=== PATIENT | male | born 1965 | race Caucasian/White ===

== ENCOUNTER 2016-10-29 21:53 | Emergency (ER) | payer MEDICAID ==
[~2016-10-29] VITALS: Ht 172.7 cm; Wt 65.0 kg
[~2016-10-29 21:53] MED LIST: IBUP600 PO; ORPH100T PO
[2016-10-29 21:55] VITALS: BP 149/84; PULSE 56; RESP 16; TEMP 97.8; O2SAT 99
== END 2016-10-29 22:35 | disposition left against medical advice (07) ==
LOC: NEDAMB 21:53
DX: R10.30 Lower abdominal pain, unspecified (principal); Z53.21 Procedure and treatment not carried out due to patient leaving prior to being seen by health care provider
CPT/HCPCS: 99281

== ENCOUNTER 2016-12-08 19:31 | Inpatient (IN) | payer MEDICAID, OTHER ==
[~2016-12-08] VITALS: Ht 175.3 cm; Wt 70.5 kg
[2016-12-08 19:33] VITALS: BP 158/85; PULSE 63; RESP 16; TEMP 98.9; O2SAT 99
[2016-12-08 20:55] LABS: AUTOMATED NEUTROPHIL # 5.5 TH/MM3 (1.8-7.7); BASOPHIL # 0.1 TH/MM3 (0-0.2); BASOPHIL % 1.2 % (0.0-2.0); EOSINOPHIL # 0.3 TH/MM3 (0-0.4); EOSINOPHIL % 2.9 % (0.0-4.0); HEMATOCRIT 47.5 % (39.0-51.0); HEMO FLAGS DIFF FINAL; LYMPH % 30.3 % (9.0-44.0); MEAN CORPUSCULAR HEMOGLOBIN 28.2 PG (27.0-34.0); MEAN CORPUSCULAR HGB CONC 33.2 % (32.0-36.0); MONO % 9.9 % (0.0-8.0); NEUT % 55.7 % (16.0-70.0); PLATELET COUNT 225 TH/MM3 (150-450); RED BLOOD COUNT 5.58 MIL/MM3 (4.50-5.90)
[2016-12-08 21:13] LABS: ANION GAP 7 MEQ/L (5-15); AST (GOT) 15 U/L (15-37); BLOOD UREA NITROGEN 5 MG/DL (7-18); CHLORIDE 103 MEQ/L (98-107); GLOMERULAR FILTRATION RATE 85 ML/MIN (>89); POTASSIUM 3.5 MEQ/L (3.5-5.1); SODIUM (NA) 141 MEQ/L (136-145)
[2016-12-08 21:14] LABS: ALT (GPT) 19 U/L (12-78)
[2016-12-08 21:16] LABS: ALKALINE PHOSPHATASE 79 U/L (45-117); TOTAL BILIRUBIN ADULT 0.8 MG/DL (0.2-1.0)
[2016-12-08 22:00] LABS: BLOOD, URINE NEG (NEG); COMMENT (UR) CULT NOT INDICATED; CULTURE IF INDICATED CULT NOT INDICATED; GLUCOSE,URINE NEG (NEG); KETONE, URINE NEG (NEG); MUCUS URINE FEW /lpf (OCC); NITRITE,URINE NEG (NEG); PH, URINE 5.5 (5.0-8.5); URINE COLOR LIGHT-YELLOW (YELLW/STRAW)
--- NOTE | 2016-12-08 22:25 | PD ---
HPI Chief Complaint: General Weakness Time Seen by Provider: 22:00 Travel History International Travel<30 days: No Contact w/Intl Traveler<30days: No Traveled to known affect area: No History of Present Illness HPI 51-year-old male presents to emergency Department with progressively worsening lower extremity weakness bilaterally with frequent falls, history of both urine and follow incontinence and recent weeks. 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 Patient states she's been trying to get him with neurology since then, but due to insurance issues he has not been able to get an appointment in the past year. Patient does also complain of bilateral upper extremity numbness this. He denies fever, chills, or other symptoms. Patient states symptoms are progressively worsening, especially in the last several weeks. Patient also states occasional headaches which last for seconds. He states no abdominal pain, nausea, vomiting, or diarrhea. He has no shortness of breath, cough, or wheezing. Patient is allergic to doxycycline. PFSH Past Medical History Blood Disorders: No Anxiety: Yes Cancer: No Cardiovascular Problems: No Chest Pain: Yes Diminished Hearing: No Endocrine: No Gastrointestinal Disorders: No GERD: Yes Genitourinary: No Immune Disorder: No Musculoskeletal: No Neurologic: No Respiratory: No Tetanus Vaccination: < 5 Years Influenza Vaccination: No Past Surgical History AICD: No Joint Replacement: Yes (left rotator cuff/ clavicle repair years ago ) Pacemaker: No Other Surgery: Yes (LEFT TOE , ) Social History Alcohol Use: No Tobacco Use: Yes (2 PPD) Substance Use: No Allergies-Medications (Allergen,Severity, Reaction): Coded Allergies: Doxycycline (Verified Adverse Reaction, Intermediate, Nausea/Vomiting, ) Reported Meds & Prescriptions Reported Meds & Active Scripts Active No Active Prescriptions or Reported Medications Review of Systems Except as stated in HPI: all other systems reviewed are Neg General / Constitutional: No: Fever Eyes: No: Visual changes HENT: No: Headaches Cardiovascular: No: Chest Pain or Discomfort Respiratory: No: Shortness of Breath Gastrointestinal: No: Abdominal Pain Genitourinary: No: Dysuria Musculoskeletal: Positive: Weakness (see history present illness.), No: Pain Skin: No Rash Neurologic: Positive: Coordination Problem, Ataxia, Incontinence, No: Weakness Psychiatric: No: Depression Endocrine: No: Polydipsia Hematologic/Lymphatic: No: Easy Bruising Physical Exam Narrative GENERAL: Patient appears in no acute distress. SKIN: Warm and dry. Normal color. Normal turgor. No rash. HEAD: Atraumatic. Normocephalic. EYES: Pupils equal and round. No scleral icterus. No injection or drainage. ENT: No nasal bleeding or discharge. Mucous membranes pink and moist. Pharynx is clear. Uvula is midline. Airway is patent. NECK: Trachea midline. Supple and nontender. CARDIOVASCULAR: Regular rate and rhythm. RESPIRATORY: No accessory muscle use. Clear to auscultation. Breath sounds equal bilaterally. GASTROINTESTINAL: Abdomen soft, non-tender, nondistended. Hepatic and splenic margins not palpable. MUSCULOSKELETAL: Extremities without clubbing, cyanosis, or edema. No obvious deformities. NEUROLOGICAL: Awake and alert. No obvious cranial nerve deficits. Motor grossly within normal limits. Patient has 3-4 over 5 strength in the lower extremities bilaterally. Patient is hyperreflexive in the patellar and Achilles tendons. Patient has positive cogwheeling in both lower extremities. Upper extremities have normal range of motion and strength. Normal speech. PSYCHIATRIC: Appropriate mood and affect; insight and judgment normal. Data Data Last Documented VS Vital Signs Date Time Temp Pulse Resp B/P Pulse Ox O2 Delivery O2 Flow Rate FiO2 12/08/16 22:15 16 12/08/16 19:33 98.9 63 158/85 99 Room Air Orders Complete Blood Count With Diff (12/08/16 19:54) Comprehensive Metabolic Panel (12/08/16 19:54) Urinalysis - C+S If Indicated (12/08/16 19:54) Mri C Spine W&W/O Contrast (12/08/16 ) Mri T Spine W & W/O Contrast (12/08/16 ) Mri L Spine W&W/O Contrast (12/08/16 ) Westergren Sedimentation Rate (12/08/16 22:17) Labs Laboratory Tests Test 12/08/16 12/08/16 20:16 21:35 White Blood Count 10.0 TH/MM3 Red Blood Count 5.58 MIL/MM3 Hemoglobin 15.8 GM/DL Hematocrit 47.5 % Mean Corpuscular Volume 85.0 FL Mean Corpuscular Hemoglobin 28.2 PG Mean Corpuscular Hemoglobin 33.2 % Concent Red Cell Distribution Width 15.0 % Platelet Count 225 TH/MM3 Mean Platelet Volume 9.0 FL Neutrophils (%) (Auto) 55.7 % Lymphocytes (%) (Auto) 30.3 % Monocytes (%) (Auto) 9.9 % Eosinophils (%) (Auto) 2.9 % Basophils (%) (Auto) 1.2 % Neutrophils # (Auto) 5.5 TH/MM3 Lymphocytes # (Auto) 3.0 TH/MM3 Monocytes # (Auto) 1.0 TH/MM3 Eosinophils # (Auto) 0.3 TH/MM3 Basophils # (Auto) 0.1 TH/MM3 CBC Comment DIFF FINAL Differential Comment Sodium Level 141 MEQ/L Potassium Level 3.5 MEQ/L Chloride Level 103 MEQ/L Carbon Dioxide Level 31.0 MEQ/L Anion Gap 7 MEQ/L Blood Urea Nitrogen 5 MG/DL Creatinine 0.94 MG/DL Estimat Glomerular Filtration 85 ML/MIN Rate Random Glucose 81 MG/DL Calcium Level 9.5 MG/DL Total Bilirubin 0.8 MG/DL Aspartate Amino Transf 15 U/L (AST/SGOT) Alanine Aminotransferase 19 U/L (ALT/SGPT) Alkaline Phosphatase 79 U/L Total Protein 7.9 GM/DL Albumin 3.8 GM/DL Urine Color LIGHT-YELLOW Urine Turbidity CLEAR Urine pH 5.5 Urine Specific [place] 1.004 Urine Protein NEG mg/dL Urine Glucose (UA) NEG mg/dL Urine Ketones NEG mg/dL Urine Occult Blood NEG Urine Nitrite NEG Urine Bilirubin NEG Urine Urobilinogen LESS THAN 2.0 MG/DL Urine Leukocyte Esterase NEG Urine RBC LESS THAN 1 /hpf Urine WBC 1 /hpf Urine Mucus FEW /lpf Microscopic Urinalysis Comment CULT NOT INDICATED MDM Medical Decision Making Medical Screen Exam Complete: Yes Emergency Medical Condition: Yes Medical Record Reviewed: Yes Differential Diagnosis Lower extremity weakness. Hyperreflexia. Reports of demyelinization on MRI. Possible Multiple sclerosis. Narrative Course CBC CMP and urinalysis are normal. Patient is discussed with Dr. Tao. MRI of the brain and cervical spine is ordered. Care the patient is assumed at 2300 hrs., and final plan and disposition will be by Dr. Tao. Scripts No Active Prescriptions or Reported Meds Condition: Stable Iban Orr Dec 08, 2016 22:25
--- NOTE | 2016-12-08 22:34 | PD ---
Data Data Last Documented VS Vital Signs Date Time Temp Pulse Resp B/P Pulse Ox O2 Delivery O2 Flow Rate FiO2 12/08/16 22:15 16 12/08/16 19:33 98.9 63 158/85 99 Room Air Orders Complete Blood Count With Diff (12/08/16 19:54) Comprehensive Metabolic Panel (12/08/16 19:54) Urinalysis - C+S If Indicated (12/08/16 19:54) Mri C Spine W&W/O Contrast (12/08/16 ) Mri T Spine W & W/O Contrast (12/08/16 ) Mri L Spine W&W/O Contrast (12/08/16 ) Westergren Sedimentation Rate (12/08/16 22:17) Methylprednisolone So Succ Inj (Solumedr (12/08/16 23:00) Bladder Scan PRN (12/08/16 22:54) Gadodiamide Pf Inj (Omniscan Pf Inj) (12/09/16 00:32) Admit Order (Ed Use Only) (12/09/16 01:11) Labs Laboratory Tests Test 12/08/16 12/08/16 20:16 21:35 White Blood Count 10.0 TH/MM3 Red Blood Count 5.58 MIL/MM3 Hemoglobin 15.8 GM/DL Hematocrit 47.5 % Mean Corpuscular Volume 85.0 FL Mean Corpuscular Hemoglobin 28.2 PG Mean Corpuscular Hemoglobin 33.2 % Concent Red Cell Distribution Width 15.0 % Platelet Count 225 TH/MM3 Mean Platelet Volume 9.0 FL Neutrophils (%) (Auto) 55.7 % Lymphocytes (%) (Auto) 30.3 % Monocytes (%) (Auto) 9.9 % Eosinophils (%) (Auto) 2.9 % Basophils (%) (Auto) 1.2 % Neutrophils # (Auto) 5.5 TH/MM3 Lymphocytes # (Auto) 3.0 TH/MM3 Monocytes # (Auto) 1.0 TH/MM3 Eosinophils # (Auto) 0.3 TH/MM3 Basophils # (Auto) 0.1 TH/MM3 CBC Comment DIFF FINAL Differential Comment Erythrocyte Sedimentation Rate 4 mm/hr Sodium Level 141 MEQ/L Potassium Level 3.5 MEQ/L Chloride Level 103 MEQ/L Carbon Dioxide Level 31.0 MEQ/L Anion Gap 7 MEQ/L Blood Urea Nitrogen 5 MG/DL Creatinine 0.94 MG/DL Estimat Glomerular Filtration 85 ML/MIN Rate Random Glucose 81 MG/DL Calcium Level 9.5 MG/DL Total Bilirubin 0.8 MG/DL Aspartate Amino Transf 15 U/L (AST/SGOT) Alanine Aminotransferase 19 U/L (ALT/SGPT) Alkaline Phosphatase 79 U/L Total Protein 7.9 GM/DL Albumin 3.8 GM/DL Urine Color LIGHT-YELLOW Urine Turbidity CLEAR Urine pH 5.5 Urine Specific [place] 1.004 Urine Protein NEG mg/dL Urine Glucose (UA) NEG mg/dL Urine Ketones NEG mg/dL Urine Occult Blood NEG Urine Nitrite NEG Urine Bilirubin NEG Urine Urobilinogen LESS THAN 2.0 MG/DL Urine Leukocyte Esterase NEG Urine RBC LESS THAN 1 /hpf Urine WBC 1 /hpf Urine Mucus FEW /lpf Microscopic Urinalysis Comment CULT NOT INDICATED MDM Medical Record Reviewed: Yes Supervised Visit with JEREMIAH: Yes Narrative Course I, Dr. Tao, have reviewed the advance practice practitioner's documentation and am in agreement, met with the patient face to face, made the diagnosis, and the medical decision making was done by me. The patient was initially seen by Iban, the physician retail loan originator assistant. Please see his complete history and physical. *My assessment and Findings: The patient is a 51-year-old male who presents to [facility] emergency Department with a history of progressive weakness and incontinence of urine with difficulty ambulating. The patient reports that he did have an MRI done last year that revealed evidence of multiple sclerosis. He has been attempting to follow-up with a neurologist, however is difficulty establishing an appointment with a neurologist due to problems finding one through his insurance. The patient's examination was remarkable for reported tingling sensations in the upper extremities, weakness of bilateral lower extremities. Laboratory studies and imaging studies were ordered, imaging of the back with MRI was ordered to evaluate for possible exacerbation of multiple sclerosis, versus cord contusion, versus cord compression During the course of the patients emergency department visit, the patients history, examination, and differential diagnosis were reviewed with the patient. The patient had IV access obtained and blood work sent for analysis. The patient was initially provided Solu-Medrol 125 mg IV for suspected MS exacerbation. The patients laboratory studies were reviewed and remarkable for CBC is unremarkable, sedimentation rate is 4, CMP is remarkable for a BUN of 5, GFR of 85, urinalysis unremarkable Radiology studies were reviewed and remarkable for an MRI of the C-spine which showed an abnormal area of signal with enhancement in the cervical cord posterior to C3 vertebral body could be an area of chronic multiple sclerosis, lumbar MRI shows no compression fracture or abnormal area of enhancement, T-spine was unremarkable. Therefore cord compression as an emergent surgical cause of the patient's lower extremity weakness has been ruled out. The patients results were discussed with the patient, including the plan of care. I explained that further testing and/ or monitoring is indicated based on the patients history, examination, and/ or laboratory findings. Therefore, I recommended admission for additional evaluation. The patient expressed understanding and was agreeable with this plan. The patient was admitted to the hospital in stable condition and [facility] Physician Communication Physician Communication The patient's case was discussed with Dr. Billings we did agree to admit the patient for further evaluation and treatment at this time. Diagnosis Primary Impression: Multiple sclerosis exacerbation Admitting Information Admitting Physician Requests: Admit Scripts Walker with Front Wheels 1 Mis Mis #1 EA .ROUTE DIRECTED Ref 0 Prov:Danica Hernandez PA-C 12/09/16 Condition: Stable Shayy Tao MD Dec 08, 2016 22:34
[2016-12-08] MEDS ORDERED: methylPREDNISolone SOD SUCC 125 MG/2 ML VIAL IV PUSH ONE (23:00)
[2016-12-09] VITALS (7 sets, daily range): BP systolic 112–145; BP diastolic 64–79; PULSE 54–96; RESP 16–20; TEMP 97.2–98.4; O2SAT 94–98
[2016-12-09] MEDS ORDERED: GADODIAMIDE PF 287 MG/ML 20 ML VIAL (for RAD MRI) IV ONE (00:32)
--- NOTE | 2016-12-09 00:47 | RADRPT ---
EXAM DATE/TIME: 12/08/2016 23:39 [facility] COMPARISON: MRI LUMBAR SPINE W & W/O CONTRAST, December 08, 2016, 23:39. INDICATIONS : Ataxia. CONTRAST: 14 cc Omniscan (gadodiamide) IV MEDICAL HISTORY : Multiple sclerosis. SURGICAL HISTORY : None. ENCOUNTER: Initial ACUITY: > 1 year PAIN SCORE: 0/10 LOCATION: [facility] TECHNIQUE: Multiplanar multisequence MRI of the thoracic spine was performed. FINDINGS: VERTEBRA: Normal vertebral body height. Homogeneous marrow signal. ALIGNMENT: Normal. CORD: Normal position and configuration. POST CONTRAST: No abnormal areas of contrast enhancement seen. T1-T2: Normal. T2-T3: The thecal sac has a normal diameter. No evidence of disc bulge or protrusion. T3-T4: The thecal sac has a normal diameter. No evidence of disc bulge or protrusion. T4-T5: The thecal sac has a normal diameter. No evidence of disc bulge or protrusion. T5-T6: The thecal sac has a normal diameter. No evidence of disc bulge or protrusion. T6-T7: The thecal sac has a normal diameter. No evidence of disc bulge or protrusion. T7-T8: The thecal sac has a normal diameter. No evidence of disc bulge or protrusion. T8-T9: The thecal sac has a normal diameter. No evidence of disc bulge or protrusion. T9-T10: The thecal sac has a normal diameter. No evidence of disc bulge or protrusion. T10-T11: The thecal sac has a normal diameter. No evidence of disc bulge or protrusion. T11-T12: The thecal sac has a normal diameter. No evidence of disc bulge or protrusion. T12-L1: The thecal sac has a normal diameter. No evidence of disc bulge or protrusion. CONCLUSION: Normal examination. Berny Jefferson MD on December 09, 2016 at 0:46 Board Certified Radiologist. This report was verified electronically.
--- NOTE | 2016-12-09 01:09 | RADRPT ---
EXAM DATE/TIME: 12/08/2016 23:39 [facility] COMPARISON: No previous studies available for comparison. INDICATIONS : Ataxia. CONTRAST: 14 cc Omniscan (gadodiamide) IV MEDICAL HISTORY : Multiple sclerosis. SURGICAL HISTORY : None. ENCOUNTER: Initial ACUITY: > 1 year PAIN SCORE: 0/10 LOCATION: Paraspinal TECHNIQUE: Multiplanar, multisequence MRI examination of the cervical spine was performed. FINDINGS: VERTEBRAE: Normal vertebral body height. Homogeneous marrow signal. ALIGNMENT: No evidence of subluxation. CORD: There some areas of narrowing of the cord from the C 2/3 disc space down to the C3-4 disc space. POST FOSSA: The cerebellar tonsils are normal in position. POST-CONTRAST: No abnormal areas of enhancement are seen. C2-C3: The thecal sac has a normal configuration. There is no evidence of disc herniation or spinal canal stenosis. The neural foramina are patent bilaterally. C3-C4: The thecal sac has a normal configuration. There is no evidence of disc herniation or spinal canal s tenosis. The neural foramina are patent bilaterally. C4-C5: The thecal sac has a normal configuration. There is no evidence of disc herniation or spinal canal s tenosis. The neural foramina are patent bilaterally. C5-C6: The thecal sac has a normal configuration. There is no evidence of disc herniation or spinal canal s tenosis. The neural foramina are patent bilaterally. C6-C7: The thecal sac has a normal configuration. There is no evidence of disc herniation or spinal canal s tenosis. The neural foramina are patent bilaterally. C7-T1: The thecal sac has a normal configuration. There is no evidence of disc herniation or spinal canal s tenosis. The neural foramina are patent bilaterally. CONCLUSION: Abnormal area of signal without enhancement in the cervical cord posterior to the C3 vertebral body. Could be an area of chronic multiple sclerosis. No acute edema or enhancement identified Berny Jefferson MD on December 09, 2016 at 1:05 Board Certified Radiologist. This report was verified electronically.
--- NOTE | 2016-12-09 01:13 | RADRPT ---
EXAM DATE/TIME: 12/08/2016 23:39 [facility] COMPARISON: No previous studies available for comparison. INDICATIONS : Ataxia. CONTRAST: 14 cc Omniscan (gadodiamide) IV MEDICAL HISTORY : Multiple sclerosis. SURGICAL HISTORY : None. ENCOUNTER: Initial ACUITY: > 1 year PAIN SCORE: 0/10 LOCATION: Paraspinal TECHNIQUE: Multiplanar multisequence MRI of the lumbar spine was performed with and without contrast. FINDINGS: The most caudal appearing lumbar vertebra is numbered as L5. VERTEBRAE: Homogeneous signal. Normal alignment. CONUS: Normal level and configuration. POST CONTRAST: No abnormal areas of contrast enhancement are seen. T12-L1: The thecal sac has a normal diameter. No evidence of disc bulge or protrusion. The neural foramina are patent bilaterally. L1-L2: The thecal sac has a normal diameter. No evidence of disc bulge or protrusion. The neural foramina are patent bilaterally. L2-L3: The thecal sac has a normal diameter. No evidence of disc bulge or protrusion. The neural foramina are patent bilaterally. L3-L4: The thecal sac has a normal diameter. No evidence of disc bulge or protrusion. The neural foramina are patent bilaterally. L4-L5: The thecal sac has a normal diameter. Mild diffuse annular bulge . No evidence of disc protrusion. The neural foramina are patent bilaterally. L5-S1: The thecal sac has a normal diameter. Mild diffuse annular bulge . No evidence of disc protrusion. The neural foramina are patent bilaterally. CONCLUSION: Mild diffuse annular bulges at L4-5 and L5-S1. No compression fracture or abnormal area of enhancemen t is identified Berny Jefferson MD on December 09, 2016 at 1:10 Board Certified Radiologist. This report was verified electronically.
[2016-12-09] MEDS ORDERED: ACETAMINOPHEN 325 MG TAB PO PRN (01:45)
[2016-12-09] MEDS ORDERED: NALOXONE HCL 0.4 MG/ML AMP IV PRN (01:45)
[2016-12-09] MEDS ORDERED: ONDANSETRON HCL 4 MG/2 ML VIAL IVP PRN (01:45)
[2016-12-09] MEDS ORDERED: MAGNESIUM HYDROXIDE SUSP 30 ML CUP PO PRN (01:45)
[2016-12-09] MEDS ORDERED: HEPARIN SODIUM - SQ 10,000 UNITS/ML VIAL SQ SCH (06:00)
--- NOTE | 2016-12-09 08:21 | HHI.HP ---
[facility] Lavon Richardson MD Admission Diagnosis lower extremity weakness, urinary incontinence, suspected MS exacerb Diagnoses: Chief Complaint: weakness, falls, incontinence Travel History International Travel<30 Days: No Contact w/Intl Traveler <30 Da: No Traveled to Known Affected Are: No History of Present Illness Written by Danica Hernandez, acting as scribe for Dr. Gamez on 12/09/16 at 07:55. 51-year-old male with history of GERD, anxiety, presents with a 1 year history of multiple worsening neurological deficits including lower extremity weakness, falls, bladder/bowel incontinence, upper extremity numbness. Over the past multiple months, approximately since March 2016, he's been getting significantly worse with increasing weakness, frequent falls, and now urine and fecal incontinence. He states there's no saddle anesthesia and he has the sensation that he has to use the restroom however does not have control of his function and is usually unable to make it to the bathroom in time. He's also noticed lately he's becoming more confused, forgetful, and disoriented at times. He also reports tremors of his upper and lower extremities that has made it difficult to perform his daily activities such as shaving and showering. He states sometimes his symptoms are so bad that he cannot even walk. He states he has fallen on steps, fallen off a ladder, and even tripped in the grass. Lately when he tries to get into a vehicle he has to pick his legs up with his arms to swing them into the vehicle. He also reports tinnitus, intermittent hearing loss , and dizziness. Denies any visual changes. The patient also reports bilateral upper extremity numbness. He has a sister in [place] who was diagnosed with multiple sclerosis 1 year ago. The patient started to become very concerned about his symptoms in March 2016 therefore he paid [id number] to see a PCP who ordered initial work up. He has a brain MRI report done on 04/25/16 which showed "cerebral white matter disease with scattered T2 hyperintensities which include corpus callosal involvement and is characteristic of a demyelinating process". Lumbar spine MRI also done 04/25/16 showed mild DDD at L4-5 and L5-S1; mild right-sided foraminal stenosis at L4-5; no evidence of disc herniation, central spinal stenosis, or significant nerve root compression. He also has outpatient labs done which were only remarkable for Potassium 5.5. He tried to see an outpatient neurologist however was turned down due to insurance reasons. Review of Systems Except as stated in HPI: all other systems reviewed are Neg Past Family Social History Past Medical History GERD Anxiety Depression Past Surgical History Left Clavicle surgery Toe surgery Reported Medications No Active Prescriptions or Reported Medications Allergies: Coded Allergies: Doxycycline (Verified Adverse Reaction, Intermediate, Nausea/Vomiting, ) Active Ordered Medications Current Medications Medications (Trade) Dose Ordered Sig/Barbra Route Start Time Stop Time Status Last Admin (Tylenol) 650 mg Q4H PRN PO 12/09/16 01:45 (Zofran Inj) 4 mg Q6H PRN IVP 12/09/16 01:45 (Heparin Inj) 5,000 units Q8H SQ 12/09/16 06:00 12/09/16 05:48 (Narcan Inj) 0.4 mg UNSCH PRN IV 12/09/16 01:45 (Amber-Colace) 1 tab BID PO 12/09/16 09:00 (Milk Of Magnesia Liq) 30 ml Q12H PRN PO 12/09/16 01:45 Family History Sister with multiple sclerosis diagnosed 1 year ago Maternal family with cancer Paternal family with heart disease and diabetes Social History Smokes tobacco 1 to 1.5 PPD, trying to cut back. Denies any alcohol or illicit drug use Physical Exam Vital Signs Vital Signs Date Time Temp Pulse Resp B/P Pulse Ox O2 Delivery O2 Flow Rate FiO2 12/09/16 04:32 98.4 60 18 112/65 97 12/08/16 22:15 16 12/08/16 19:33 98.9 63 16 158/85 99 Room Air Physical Exam GENERAL: Well-nourished, well-developed middle aged male patient in NAD. SKIN: Warm and dry. No rash. HEAD: Normocephalic. Atraumatic. EYES: Pupils equal and round. No scleral icterus. No injection or drainage. ENT: No nasal bleeding or discharge. Mucous membranes pink and moist. NECK: Supple. Trachea midline. CARDIOVASCULAR: Regular rate and rhythm. S1, S2 noted. No murmur appreciated. RESPIRATORY: No accessory muscle use. Clear to auscultation. Breath sounds equal bilaterally. GASTROINTESTINAL: Abdomen soft, non-tender, nondistended. Normoactive bowel sounds x4. MUSCULOSKELETAL: No obvious deformities. Extremities without clubbing, cyanosis , or edema. NEUROLOGICAL: Awake and alert. No obvious cranial nerve deficits. Motor grossly within normal limits. 5/5 strength in b/l upper extremities; 4/5 muscle strength in bilateral lower extremities. Normal speech. PSYCHIATRIC: Appropriate mood and affect; insight and judgment normal. Laboratory Laboratory Tests Test 12/08/16 12/08/16 20:16 21:35 White Blood Count 10.0 Red Blood Count 5.58 Hemoglobin 15.8 Hematocrit 47.5 Mean Corpuscular Volume 85.0 Mean Corpuscular Hemoglobin 28.2 Mean Corpuscular Hemoglobin 33.2 Concent Red Cell Distribution Width 15.0 Platelet Count 225 Mean Platelet Volume 9.0 Neutrophils (%) (Auto) 55.7 Lymphocytes (%) (Auto) 30.3 Monocytes (%) (Auto) 9.9 Eosinophils (%) (Auto) 2.9 Basophils (%) (Auto) 1.2 Neutrophils # (Auto) 5.5 Lymphocytes # (Auto) 3.0 Monocytes # (Auto) 1.0 Eosinophils # (Auto) 0.3 Basophils # (Auto) 0.1 CBC Comment DIFF FINAL Differential Comment Erythrocyte Sedimentation Rate 4 Sodium Level 141 Potassium Level 3.5 Chloride Level 103 Carbon Dioxide Level 31.0 Anion Gap 7 Blood Urea Nitrogen 5 Creatinine 0.94 Estimat Glomerular Filtration 85 Rate Random Glucose 81 Calcium Level 9.5 Total Bilirubin 0.8 Aspartate Amino Transf 15 (AST/SGOT) Alanine Aminotransferase 19 (ALT/SGPT) Alkaline Phosphatase 79 Total Protein 7.9 Albumin 3.8 Urine Color LIGHT-YELLOW Urine Turbidity CLEAR Urine pH 5.5 Urine Specific [place] 1.004 Urine Protein NEG Urine Glucose (UA) NEG Urine Ketones NEG Urine Occult Blood NEG Urine Nitrite NEG Urine Bilirubin NEG Urine Urobilinogen LESS THAN 2.0 Urine Leukocyte Esterase NEG Urine RBC LESS THAN 1 Urine WBC 1 Urine Mucus FEW Microscopic Urinalysis Comment CULT NOT INDICATED Result Diagram: 12/08/16201512/08/16 2016 Imaging Last Impressions Thoracic Spine MRI 12/08/16 0000 Signed Impressions: Service Date/Time: Thursday, December 08, 2016 23:39 - CONCLUSION: Normal examination. Berny Jefferson MD Lumbar Spine MRI 12/08/16 0000 Signed Impressions: Service Date/Time: Thursday, December 08, 2016 23:39 - CONCLUSION: Mild diffuse annular bulges at L4-5 and L5-S1. No compression fracture or abnormal area of enhancement is identified Berny Jefferson MD Cervical Spine MRI 12/08/16 0000 Signed Impressions: Service Date/Time: Thursday, December 08, 2016 23:39 - CONCLUSION: Abnormal area of signal without enhancement in the cervical cord posterior to the C3 vertebral body. Could be an area of chronic multiple sclerosis. No acute edema or enhancement identified Berny Jefferson MD Assessment and Plan Problem List: (1) Neurological deficit present ICD Code: R29.818 Status: Acute (2) Multiple sclerosis exacerbation ICD Code: G35 Status: Acute Assessment and Plan 51-year-old male with history of GERD, anxiety, presents with a 1 year history of multiple worsening neurological deficits including lower extremity weakness, falls, bladder/bowel incontinence, upper extremity numbness. Suspected Acute Multiple Sclerosis: presents with multiple worsening neurological deficits (falls/numbness/weakness/incontinence). Outpatient MRI showed "cerebral white matter disease with scattered T2 hyperintensities which include corpus callosal involvement and is characteristic of a demyelinating process". Unable to follow up with neurology due to insurance/ payment barriers. -C-spine MRI images reviewed, shows abnormal signal without enhancement in the cervical cord posterior to C3; could be area of chronic multiple sclerosis -T-spine MRI images reviewed, unremarkable -L-spine images reviewed, shows mild diffuse annular bulges at L4-5, L5-S1; no fracture or abnormal enhancement -Repeat Brain MRI w&w/out contrast -S/p IV Solumedrol 125mg x1 in the ED, will continue steroid therapy with IV Solumedrol 80mg q12h -Consult Neurology -Consider lumbar puncture, hold anticoagulation, will defer to neurology -PT evaluation -Neuro checks -1645hrs: Discussed with Dr. Harman, he will be ordering LP to be done by IR , recommends inpatient admission x3days, adding Protonix, and increasing IV Solumedrol to 500mg q12h x3days DVT Prophylaxis: teds/SCDs I spent 35 minutes [id number] with the patient or on the gonzalez discussing the patient's disposition, prognosis, and plan of care with his caregivers. Over half the time spent was devoted to counseling the patient regarding placement in coordinating care with caregivers and case management. This note was transcribed by scribe [Danica Hernandez]. I, Dr. Vini Gamez personally performed the history, physical exam, and medical decision making; and confirmed the accuracy of the information in the transcribed note. Authenticated by Dr. Vini Gamez on 12/09/16 at 14:03. Discussed Condition With Discussed with the patient and the patient's sister over the phone extensively. Discussed with case management, patient has Medicaid share of cost and should be able to follow up with neurologist after discharge. Discussed with ARIN. Danica Hernandez PA-C Dec 09, 2016 8:21 am Vini Gamez MD Dec 09, 2016 2:04 pm
[2016-12-09] MEDS ORDERED: methylPREDNISolone SOD SUCC 125 MG/2 ML VIAL IV PUSH SCH ×2 (09:00→21:00)
[2016-12-09] MEDS ORDERED: GADODIAMIDE PF 287 MG/ML 5 ML VIAL (for RAD MRI) IV ONE (10:31)
--- NOTE | 2016-12-09 10:56 | RADRPT ---
EXAM DATE/TIME: 12/09/2016 10:04 [facility] COMPARISON: MRI CERVICAL SPINE W & W/O CONTRAST, December 08, 2016, 23:39. INDICATIONS : Weakness, tremors and loss of coordination. Multiple sclerosis. CONTRAST: 13 cc Omniscan (gadodiamide) IV MEDICAL HISTORY : Multiple sclerosis. SURGICAL HISTORY : Left clavicle. ENCOUNTER: Subsequent ACUITY: 2 day PAIN SCORE: 0/10 LOCATION: head. TECHNIQUE: Multiplanar, multisequence MRI of the brain was performed both prior to and following the administrat ion of paramagnetic contrast. FINDINGS: CEREBRUM: The ventricles are normal for age. No evidence of midline shift, mass lesion, hemorrhage or acute in farction. No extraaxial fluid collections are seen. The pituitary gland and suprasellar cistern are normal in configuration. WHITE MATTER: There some scattered areas of increased T2 signal in the white matter. The overall number and locatio n is nonspecific. In the appropriate clinical setting, this could suggest a developing process such a s MS. POSTERIOR FOSSA: The cerebellum and brainstem are intact. The 4th ventricle is midline. The cerebellopontine angle is unremarkable. The cerebellar tonsils are normal in position. DIFFUSION IMAGING: No focal areas of restricted diffusion are seen. No evidence of acute infarction. EXTRACRANIAL: The visualized portions of the orbits and paranasal sinuses are unremarkable. POST-CONTRAST: No abnormal areas of parenchymal or dural enhancement. No evidence of blood-brain barrier breakdown. CONCLUSION: 1. Scattered areas of increased T2 signal in the white matter which would be consistent with patient' s stated diagnosis of MS. No enhancing plaques are seen. No abnormal signal is seen on the diffusion restricted imaging. Vini Fulton MD on December 09, 2016 at 10:51 Board Certified Radiologist. This report was verified electronically.
[2016-12-09] MEDS: DOCUSATE SODIUM 50 MG/SENNA 8.6 MG TAB PO SCH ×2 (11:56→21:00)
[2016-12-09] MEDS ORDERED: WALKER WHEELS/F1 MIS (14:47)
--- NOTE | 2016-12-09 16:09 | PD.CONS ---
History of Present Illness Service Neurology Consult Requested By [facility] Reason for Consult ms Primary Care Physician Lavon Richardson MD History of Present Illness 51-year-old male with history of GERD, anxiety, presents with a 1 year history of multiple worsening neurological deficits including lower extremity weakness, falls, bladder/bowel incontinence, upper extremity numbness. Over the past multiple months, he's been getting significantly worse with increasing weakness , frequent falls, and now urine and fecal incontinence. seen by neurologist who he states told him he has MS. never recieved medications 2/2 lack of insurance. has numbness in his arms, leg weakness, clumsiness. has had attacks of weakness lasting several days then improvement but has never been back to his baseline. has had blurry vision. +lhermittes sign. Review of Systems Except as stated in HPI: all other systems reviewed are Neg Past Family Social History Past Medical History GERD Anxiety Depression Past Surgical History Left Clavicle surgery Toe surgery Reported Medications No Active Prescriptions or Reported Medications Allergies: Coded Allergies: Doxycycline (Verified Adverse Reaction, Intermediate, Nausea/Vomiting, ) Family History Sister with multiple sclerosis diagnosed 1 year ago Social History Smokes tobacco 1 to 1.5 PPD Denies any alcohol or illicit drug use Review of Systems All other ROS: ROS reviewed as documented in chart Past Family Social History Allergies: Coded Allergies: Doxycycline (Verified Adverse Reaction, Intermediate, Nausea/Vomiting, ) Active Ordered Medications Current Medications Medications (Trade) Dose Ordered Sig/Barbra Route Start Time Stop Time Status Last Admin (Tylenol) 650 mg Q4H PRN PO 12/09/16 01:45 (Zofran Inj) 4 mg Q6H PRN IVP 12/09/16 01:45 (Heparin Inj) 5,000 units Q8H SQ 12/09/16 06:00 Hold 12/09/16 05:48 (Narcan Inj) 0.4 mg UNSCH PRN IV 12/09/16 01:45 (Amber-Colace) 1 tab BID PO 12/09/16 09:00 (Milk Of Magnesia Liq) 30 ml Q12H PRN PO 12/09/16 01:45 (SoluMEDROL INJ) 80 mg Q12HR IV PUSH 12/09/16 09:00 12/09/16 09:24 Exam I&O / VS Vital Signs Date Time Temp Pulse Resp B/P Pulse Ox O2 Delivery O2 Flow Rate FiO2 12/09/16 15:48 98.1 73 16 127/64 97 12/09/16 13:25 97.6 96 20 145/67 96 12/09/16 11:16 98.1 57 20 120/66 94 12/09/16 08:43 97.8 70 20 118/79 98 12/09/16 04:32 98.4 60 18 112/65 97 12/08/16 22:15 16 12/08/16 19:33 98.9 63 16 158/85 99 Room Air General: Alert and Oriented, No acute distress Eye: EOMI Respiratory: Non-labored respirations Neurologic: Alert, Oriented Psychiatric: Cooperative, Appropriate mood & affect Exam Comments alert, no aphasia, follows, mild dysconjugate gaze, +slow KATHERYN in both ue, + proximal hip flexor weakness, increased tone in artemio le, + artemio ankle clonus, reduced pin in arms/legs, gait not assessed Review/Management Diagnosis/Plan: (1) Multiple sclerosis exacerbation Plan: mri brain and cspine reviewed. + periventricular lesions; + black holes in the posterior trigone region. +cervical cord lesion 2-3 segments, patchy +UMN signs on exam i suspect he has MS. possibly PPMS vs SPMS recs iv solumedrol x 3 days p.t. csf studies i don't think he can work and will need long-term disability he will be seeing Dr. Joe in the [facility] clinic I gave him our research dept phone number for MS studies that he is interested in Alan Harman MD Dec 09, 2016 16:09
[2016-12-09] MEDS ORDERED: PANTOPRAZOLE SOD 40 MG DELAYED RELEASE TAB PO ONE (16:45)
[2016-12-09] MEDS ORDERED: TEMAZEPAM 15 MG CAP PO PRN (17:30)
[2016-12-09 20:10] LABS: APTT (PATIENT) 25.2 SEC (24.3-30.1); PROTHROMBIN TIME - PATIENT 10.7 SEC (9.8-11.6)
[2016-12-09] MEDS: methylPREDNISolone SO SUCC INJ 500 MG in SODIUM CHLORIDE 0.9% INJ 100 ML IV SCH (21:40)
[2016-12-10] VITALS (8 sets, daily range): BP systolic 102–134; BP diastolic 57–66; PULSE 48–59; RESP 17–20; TEMP 95.7–97.2; O2SAT 95–99
[2016-12-10] MEDS: DOCUSATE SODIUM 50 MG/SENNA 8.6 MG TAB PO SCH ×2 (07:58→21:14)
[2016-12-10] MEDS: PANTOPRAZOLE SOD 40 MG DELAYED RELEASE TAB PO SCH (07:58)
[2016-12-10] MEDS: methylPREDNISolone SO SUCC INJ 500 MG in SODIUM CHLORIDE 0.9% INJ 100 ML IV SCH ×2 (07:58→21:14)
[2016-12-10 08:27] LABS: AUTOMATED NEUTROPHIL # 15.9 TH/MM3 (1.8-7.7); BASOPHIL % 0.1 % (0.0-2.0); HEMATOCRIT 43.6 % (39.0-51.0); HEMO FLAGS DIFF FINAL; LYMPH % 7.4 % (9.0-44.0); LYMPHOCYTE # 1.3 TH/MM3 (1.0-4.8); MEAN CELL VOLUME 85.3 FL (80.0-100.0); MEAN CORPUSCULAR HEMOGLOBIN 28.4 PG (27.0-34.0); MEAN CORPUSCULAR HGB CONC 33.2 % (32.0-36.0); MONO % 2.8 % (0.0-8.0); NEUT % 89.7 % (16.0-70.0); PLATELET COUNT 222 TH/MM3 (150-450); RED BLOOD COUNT 5.11 MIL/MM3 (4.50-5.90); RED CELL DISTRIBUTION WIDTH 14.7 % (11.6-17.2); WHITE BLOOD COUNT 17.7 TH/MM3 (4.0-11.0)
[2016-12-10 08:56] LABS: BICARBONATE 28.7 MEQ/L (21.0-32.0); POTASSIUM 3.9 MEQ/L (3.5-5.1)
--- NOTE | 2016-12-10 10:39 | PD.RAD ---
Post Procedure Progress Note Pre Procedure Diagnosis: (1) Multiple sclerosis exacerbation Post Procedure Diagnosis: (1) Multiple sclerosis exacerbation Procedure Date: Dec 10, 2016 Supervising Radiologist: Danial Hawk JR Proceduralist/Assist: Danica Cox, RT(R), Heidi Hicks RT(R)() Anesthesia: Local Plan of Activity Patient to Unit: Nursing Unit Patient Condition: Good See PACS Report for procedural detail/treatment Spinal Procedure Lumbar Puncture L4-L5 Fluid Removal (CCs): 11 Fluid Description: Clear Puncture Time: 10:30 Jr. Kenn,Danial Roberto MD Dec 10, 2016 10:39
--- NOTE | 2016-12-10 11:01 | RADRPT ---
EXAM DATE/TIME: 12/10/2016 10:30 [facility] COMPARISON: No previous studies available for comparison. INDICATIONS : Patient with history of lower extremity weakness in need of lumbar puncture due to possible MS. MEDICAL HISTORY : GERD, Anxiety SURGICAL HISTORY : Left clavicle surgery, Toe surgery ENCOUNTER: Initial ACUITY: > 1 year PAIN SCORE: 0/10 LUMBAR PUNCTURE TIME: 1030 hours FLUORO TIME: 0.39 minutes IMAGE SERIES: 0 ACCESS LEVEL: L4-5 FLUID: 11 cc of clear CSF was collected and sent to the laboratory for analysis. PROCEDURE : 1. Fluoroscopic guided lumbar puncture. The risks, benefits and alternatives to the procedure were explained and verbal and written consent w as obtained. The site was prepped in sterile fashion. Full sterile technique was used, including ca p, mask, sterile gloves and gown and a large sterile sheet. Hand hygiene and 2% chlorhexidine and/or betadine/alcohol prep was utilized per protocol for cutaneous antisepsis. The skin and subcutaneous tissues were infiltrated with local anesthetic solution. With fluoroscopic guidance the lumbar thecal sac was punctured at the level above. The fluid describ ed above was removed without difficulty. The patient tolerated the procedure well and there were no complications. CONCLUSION: Uncomplicated fluoroscopically guided lumbar puncture. Danial Hawk Jr., MD on December 10, 2016 at 10:58 Board Certified Radiologist. This report was verified electronically.
[2016-12-10 11:53] LABS: GROSS BLOOD TUBE #1 0 (0); SUPERNATE COLOR TUBE #1 CLEAR (CLEAR); VOLUME TUBE # 1 2.2 ML
[2016-12-10 11:54] LABS: CSF NEUTROPHILS 0 %; GROSS BLOOD TUBE #2 0 (0); GROSS BLOOD TUBE #3 0 (0); GROSS BLOOD TUBE #4 0 (0); SUPERNATE COLOR TUBE #2 CLEAR (CLEAR); SUPERNATE COLOR TUBE #3 CLEAR (CLEAR); SUPERNATE COLOR TUBE #4 CLEAR (CLEAR); VOLUME TUBE # 2 2.5 ML; WBC TUBE #4 9 /MM3 (0-10)
[2016-12-10 11:55] LABS: CSF LYMPHOCYTES 65 %; CSF MONOCYTES 35 %
--- NOTE | 2016-12-10 14:43 | HHI.PR ---
Subjective Remarks No improvement in symptoms. Today patient has completed spine MRIs and brain MRI. He has also had a lumbar puncture. Lumbar puncture results are pending. He does have findings consistent with multiple sclerosis on his brain MRI and his cervical spine MRI. Objective Vital Signs Date Time Temp Pulse Resp B/P Pulse Ox O2 Delivery O2 Flow Rate FiO2 12/10/16 12:49 95.7 51 19 124/63 98 12/10/16 12:17 98 21 12/10/16 09:37 49 12/10/16 08:00 96.7 59 17 116/64 98 12/10/16 06:24 96.2 55 18 102/57 96 12/10/16 00:00 96.9 48 20 132/63 95 12/09/16 20:25 95 12/09/16 20:00 97.2 54 20 134/76 96 12/09/16 15:48 98.1 73 16 127/64 97 I/O 12/09/16 12/09/16 12/09/16 12/10/16 12/10/16 12/10/16 06:59 14:59 22:59 06:59 14:59 22:59 Output Total 400 ml Balance -400 ml Output Urine Total 400 ml Bladder Scan Volume Amount 50 ml # Voids 1 3 1 # Bowel Movements 0 Result Diagram: 12/10/16 0730 12/10/16 0730 Imaging Last Impressions Lumbar Puncture Fluoroscopy 12/10/16 0000 Signed Impressions: Service Date/Time: Saturday, December 10, 2016 10:30 - CONCLUSION: Uncomplicated fluoroscopically guided lumbar puncture. Danial Hawk Jr., MD Brain MRI 12/09/16 0000 Signed Impressions: Service Date/Time: Friday, December 09, 2016 10:04 - CONCLUSION: 1. Scattered areas of increased T2 signal in the white matter which would be consistent with patient's stated diagnosis of MS. No enhancing plaques are seen. No abnormal signal is seen on the diffusion restricted imaging. Vini Fulton MD Thoracic Spine MRI 12/08/16 0000 Signed Impressions: Service Date/Time: Thursday, December 08, 2016 23:39 - CONCLUSION: Normal examination. Berny Jefferson MD Lumbar Spine MRI 12/08/16 0000 Signed Impressions: Service Date/Time: Thursday, December 08, 2016 23:39 - CONCLUSION: Mild diffuse annular bulges at L4-5 and L5-S1. No compression fracture or abnormal area of enhancement is identified Berny Jefferson MD Cervical Spine MRI 12/08/16 0000 Signed Impressions: Service Date/Time: Thursday, December 08, 2016 23:39 - CONCLUSION: Abnormal area of signal without enhancement in the cervical cord posterior to the C3 vertebral body. Could be an area of chronic multiple sclerosis. No acute edema or enhancement identified Berny Jefferson MD Objective Remarks GENERAL: NAD, A&Ox3 SKIN: Warm and dry. HEAD: Normocephalic. EYES: No scleral icterus. No injection or drainage. NECK: Supple, trachea midline. No JVD or lymphadenopathy. CARDIOVASCULAR: Regular rate and rhythm without murmurs, gallops, or rubs. RESPIRATORY: Breath sounds equal bilaterally. No accessory muscle use. GASTROINTESTINAL: Abdomen soft, non-tender, nondistended. MUSCULOSKELETAL: No cyanosis, or edema. Weakness of lower extremities Medications and IVs Administered Medications Medications (Trade) Dose Ordered Sig/Barbra Route PRN Reason Start Time Stop Time Status Last Admin Dose Admin Heparin Sodium (Porcine) (Heparin Inj) 5,000 units Q8H SQ 12/09/16 06:00 Hold 12/09/16 05:48 Pantoprazole Sodium 40 mg 40 mg DAILY PO 12/10/16 09:00 12/10/16 07:58 Methylprednisolone Sodium Succinate/ Sodium Chloride (SoluMEDROL INJ/ NS Inj) 100 ml @ 200 mls/hr Q12HR IV 12/09/16 21:00 12/10/16 07:58 A/P Problem List: (1) Multiple sclerosis ICD Code: G35 (2) Multiple sclerosis exacerbation ICD Code: G35 (3) Neurological deficit present ICD Code: R29.818 Assessment and Plan Assessment and Plan 51-year-old male admitted with diffuse neurological deficits which have been persisting and progressive over year. Multiple sclerosis present. Multiple sclerosis Exacerbation of multiple sclerosis Continue systemic steroids Follow lumbar puncture studies Findings positive on brain and cervical spine MRI Physical therapy Discontinue neuro checks as patient has remained stable DVT Prophylaxis Vini Donis MD Dec 10, 2016 14:43
[2016-12-11] VITALS: BP 122/88; PULSE 50; RESP 20; TEMP 96.5; O2SAT 96
[2016-12-11 00:20] VITALS: PULSE 55
[2016-12-11 04:00] VITALS: BP 99/53; PULSE 50; RESP 20; TEMP 96.3; O2SAT 95
[2016-12-11 07:30] VITALS: BP 119/60; PULSE 46; RESP 17; TEMP 96.2; O2SAT 98
[2016-12-11] MEDS: DOCUSATE SODIUM 50 MG/SENNA 8.6 MG TAB PO SCH (09:00)
--- NOTE | 2016-12-11 09:04 | HHI.PR ---
Review/Management Diagnosis/Plan: (1) Multiple sclerosis exacerbation Plan: mri brain and cspine reviewed. + periventricular lesions; + black holes in the posterior trigone region. +cervical cord lesion 2-3 segments, patchy +UMN signs on exam he has MS. possibly PPMS vs SPMS good response to iv steroids recs d/c planning csf studies- ms profile pending i don't think he can work and will need long-term disability he will be seeing Dr. Joe in the [facility] clinic I gave him our research dept phone number for MS studies that he is interested in Subjective Subjective Comments No acute events reported; feels alot stronger; tolerated iv steroids well No headache No chest pain No dyspnea Active Medications Current Medications Medications (Trade) Dose Ordered Sig/Barbra Route Start Time Stop Time Status Last Admin (Tylenol) 650 mg Q4H PRN PO 12/09/16 01:45 (Zofran Inj) 4 mg Q6H PRN IVP 12/09/16 01:45 (Heparin Inj) 5,000 units Q8H SQ 12/09/16 06:00 Hold 12/09/16 05:48 (Narcan Inj) 0.4 mg UNSCH PRN IV 12/09/16 01:45 (Amber-Colace) 1 tab BID PO 12/09/16 09:00 12/10/16 21:14 (Milk Of Magnesia Liq) 30 ml Q12H PRN PO 12/09/16 01:45 (Protonix) 40 mg DAILY PO 12/10/16 09:00 12/10/16 07:58 Temazepam 15 mg 15 mg HS PRN PO 12/09/16 17:30 (SoluMEDROL INJ/ NS Inj) 100 ml @ 200 mls/hr Q12HR IV 12/09/16 21:00 12/10/16 21:14 Allergies Allergies Coded Allergies Doxycycline (Verified Adverse Reaction, Intermediate, Nausea/Vomiting, 10/29/16 ) Review of Systems All other ROS: ROS reviewed as documented in chart Exam I&O / VS 12/10/16 12/10/16 12/11/16 15:00 23:00 07:00 Intake Total 720 ml 340 ml 120 ml Balance 720 ml 340 ml 120 ml Intake Oral 720 ml 240 ml 120 ml IV Total 100 ml # Voids 5 1 0 # Bowel Movements 1 0 0 Vital Signs Date Time Temp Pulse Resp B/P Pulse Ox O2 Delivery O2 Flow Rate FiO2 12/11/16 07:30 96.2 46 17 119/60 98 12/11/16 04:00 96.3 50 20 99/53 95 12/11/16 00:20 55 12/11/16 00:00 96.5 50 20 122/88 96 12/10/16 20:15 98 21 12/10/16 20:00 97.2 59 20 134/66 99 12/10/16 12:49 95.7 51 19 124/63 98 12/10/16 12:17 98 21 12/10/16 09:37 49 General: Alert and Oriented, No acute distress Eye: EOMI Respiratory: Non-labored respirations Neurologic: Alert, Oriented Psychiatric: Cooperative, Appropriate mood & affect Exam Comments alert, no aphasia, follows, mild dysconjugate gaze, +slow KATHERYN in both ue, + proximal hip flexor weakness- improved 5-/5, increased tone in artemio le, + artemio ankle clonus, reduced pin in arms/legs, gait not assessed Objective Micro and Labs Laboratory Tests Test 12/10/16 10:30 CSF Volume (Tube 1) 2.2 CSF Supernatant Color (tube 1) CLEAR CSF Gross Blood (Tube 1) 0 CSF Volume (Tube 2) 2.5 CSF Supernatant Color (tube 2) CLEAR CSF Gross Blood (Tube 2) 0 CSF Volume (Tube 3) 2.0 CSF Supernatant Color (tube 3) CLEAR CSF Gross Blood (Tube 3) 0 CSF Volume (Tube 4) 3.0 CSF Supernatant Color (tube 4) CLEAR CSF Gross Blood (Tube 4) 0 CSF WBC (Tube 4) 9 CSF RBC (Tube 4) 0 CSF Neutrophils 0 CSF Lymphocytes 65 CSF Monocytes 35 CSF Glucose 97 CSF Total Protein 53.9 Date/Time Procedure Status Source Growth 12/10/16 10:30 Gram Stain - Final Resulted Cerebral Spinal Fluid Lumbar Puncture 12/10/16 10:30 CSF Culture - Preliminary Resulted Cerebral Spinal Fluid Lumbar Puncture NO GROWTH IN 24 HOURS. Alan Harman MD Dec 11, 2016 09:04
[2016-12-11] MEDS: methylPREDNISolone SO SUCC INJ 500 MG in SODIUM CHLORIDE 0.9% INJ 100 ML IV SCH (09:37)
[2016-12-11] MEDS: PANTOPRAZOLE SOD 40 MG DELAYED RELEASE TAB PO SCH (09:37)
[2016-12-11 09:58] VITALS: PULSE 47
[2016-12-11] MEDS ORDERED: ALPR.25 PO (10:07)
[2016-12-11] MEDS ORDERED: PRED20 PO (10:07)
[2016-12-11] MEDS ORDERED: FLUO10TA PO (10:07)
--- NOTE | 2016-12-11 10:14 | HHI.DS ---
Discharge Summary Admission Date Dec 09, 2016 at 16:49 Discharge Date: Dec 11, 2016 Admitting Diagnosis lower extremity weakness, urinary incontinence, suspected MS exacerb (1) Neurological deficit present ICD Code: R29.818 Diagnosis: Principal (2) Multiple sclerosis exacerbation ICD Code: G35 Diagnosis: Principal Procedures Lumbar puncture Brief History - From Admission Written by Danica Hernandez, acting as scribe for Dr. Gamze on 12/09/16 at 07:55. 51-year-old male with history of GERD, anxiety, presents with a 1 year history of multiple worsening neurological deficits including lower extremity weakness, falls, bladder/bowel incontinence, upper extremity numbness. Over the past multiple months, approximately since March 2016, he's been getting significantly worse with increasing weakness, frequent falls, and now urine and fecal incontinence. He states there's no saddle anesthesia and he has the sensation that he has to use the restroom however does not have control of his function and is usually unable to make it to the bathroom in time. He's also noticed lately he's becoming more confused, forgetful, and disoriented at times. He also reports tremors of his upper and lower extremities that has made it difficult to perform his daily activities such as shaving and showering. He states sometimes his symptoms are so bad that he cannot even walk. He states he has fallen on steps, fallen off a ladder, and even tripped in the grass. Lately when he tries to get into a vehicle he has to pick his legs up with his arms to swing them into the vehicle. He also reports tinnitus, intermittent hearing loss , and dizziness. Denies any visual changes. The patient also reports bilateral upper extremity numbness. He has a sister in [place] who was diagnosed with multiple sclerosis 1 year ago. The patient started to become very concerned about his symptoms in March 2016 therefore he paid [id number] to see a PCP who ordered initial work up. He has a brain MRI report done on 04/25/16 which showed "cerebral white matter disease with scattered T2 hyperintensities which include corpus callosal involvement and is characteristic of a demyelinating process". Lumbar spine MRI also done 04/25/16 showed mild DDD at L4-5 and L5-S1; mild right-sided foraminal stenosis at L4-5; no evidence of disc herniation, central spinal stenosis, or significant nerve root compression. He also has outpatient labs done which were only remarkable for Potassium 5.5. He tried to see an outpatient neurologist however was turned down due to insurance reasons. CBC/BMP: 12/10/16 0730 12/10/16 0730 Significant Findings Laboratory Tests Test 12/08/16 12/08/16 12/10/16 12/10/16 20:16 21:35 07:30 10:30 Monocytes (%) (Auto) 9.9 % (0.0-8.0) Monocytes # (Auto) 1.0 TH/MM3 (0-0.9) Blood Urea Nitrogen 5 MG/DL (7-18) Estimat Glomerular Filtration 85 ML/MIN (>89) 86 ML/MIN (>89) Rate Urine Mucus FEW /lpf (OCC) White Blood Count 17.7 TH/MM3 (4.0-11.0) Neutrophils (%) (Auto) 89.7 % (16.0-70.0) Lymphocytes (%) (Auto) 7.4 % (9.0-44.0) Neutrophils # (Auto) 15.9 TH/MM3 (1.8-7.7) Random Glucose 147 MG/DL (74-106) CSF Glucose 97 MG/DL (40-80) CSF Total Protein 53.9 MG/DL (15.0-45.0) Imaging Last Impressions Lumbar Puncture Fluoroscopy 12/10/16 0000 Signed Impressions: Service Date/Time: Saturday, December 10, 2016 10:30 - CONCLUSION: Uncomplicated fluoroscopically guided lumbar puncture. Danial Hawk Jr., MD Brain MRI 12/09/16 0000 Signed Impressions: Service Date/Time: Friday, December 09, 2016 10:04 - CONCLUSION: 1. Scattered areas of increased T2 signal in the white matter which would be consistent with patient's stated diagnosis of MS. No enhancing plaques are seen. No abnormal signal is seen on the diffusion restricted imaging. Vini Fulton MD Thoracic Spine MRI 12/08/16 0000 Signed Impressions: Service Date/Time: Thursday, December 08, 2016 23:39 - CONCLUSION: Normal examination. Berny Jefferson MD Lumbar Spine MRI 12/08/16 0000 Signed Impressions: Service Date/Time: Thursday, December 08, 2016 23:39 - CONCLUSION: Mild diffuse annular bulges at L4-5 and L5-S1. No compression fracture or abnormal area of enhancement is identified Berny Jefferson MD Cervical Spine MRI 12/08/16 0000 Signed Impressions: Service Date/Time: Thursday, December 08, 2016 23:39 - CONCLUSION: Abnormal area of signal without enhancement in the cervical cord posterior to the C3 vertebral body. Could be an area of chronic multiple sclerosis. No acute edema or enhancement identified Berny Jefferson MD Hospital Course Mr. Carvajal is a 51-year-old male. She was admitted with exacerbation of multiple sclerosis which was a new diagnosis for him. He was unable to ambulate. He had incontinence of bowel and bladder. Steroids are started. He has had benefits with steroids and is now able to ambulate. Lumbar puncture performed while here. Pulmonary lumbar puncture findings are elevated glucose and elevated proteins. At this point is medically stable for discharge to home. He will continue high-dose steroids for 2 more days. He is to follow up as an outpatient with neurology and at [facility]. He is provided with Xanax for anxiety and fluoxetine for depression, both of which are pre-existing conditions worsened by his chronic illness. Pt Condition on Discharge: Stable Discharge Disposition: Discharge Home Discharge Time: <= 30 minutes Discharge Instructions DIET: Follow Instructions for: As Tolerated, No Restrictions Activities you can perform: Regular-No Restrictions Follow up Referrals: Neurology - 2 Weeks with Alan Harman MD PCP Follow-up - 2 Months New Medications: Alprazolam (Xanax) 0.25 Mg Tab 0.25 MG PO TID PRN ANXIETY #40 Ref 0 TAB Fluoxetine (Fluoxetine) 10 Mg Tab 10 MG PO DAILY Depression Control #30 Ref 1 TAB Prednisone (Prednisone) 20 Mg Tab 40 MG PO BID Multiple Sclerosis #4 Ref 0 TAB Prednisone (Prednisone) 20 Mg Tab 40 MG PO BID PRN Multiple Sclerosis Exacerbatio #8 Ref 0 TAB Walker with Front Wheels (Walker with Front Wheels) 1 Mis Mis 1 EA .ROUTE DIRECTED #1 Ref 0 EA Vini Gamez MD Dec 11, 2016 10:14
[2016-12-11 16:43] LABS: OLIGOCLONAL BANDING CSF 0 bands (()); OLIGOCLONAL BANDING INTERPRET 0 bands (<4); OLIGOCLONAL BANDING SERUM 0 bands (())
[2016-12-13 10:50] LABS: CSF CRYPTOCOCCUS AG CONF ND (NOT DETECTD)
[2016-12-14 07:52] LABS: CSF ANGIOTENSIN CONV ENZYME LESS THAN 5 U/L (< OR = 15)
== END 2016-12-11 12:19 | disposition home or self-care (01) | DRG 60 ==
LOC: NEPC 19:31 → INTOOBSV 12-09 01:13 → NEDA 12-09 01:13 → NEPGCP 12-09 02:10 → OBSVTOIN 12-09 16:49 → N05B 12-09 20:27
PROVIDERS: ADMIT Hospitalist; ATTEND Hospitalist
PROC: 009U3ZX Drainage of Spinal Canal, Percutaneous Approach, Diagnostic (ICD-10-PCS; principal; 2016-12-10)
PROC: B01BZZZ Fluoroscopy of Spinal Cord (ICD-10-PCS; 2016-12-10)
DX: G35 Multiple sclerosis (principal); F32.9 Major depressive disorder, single episode, unspecified; F41.9 Anxiety disorder, unspecified; F17.210 Nicotine dependence, cigarettes, uncomplicated; K21.9 Gastro-esophageal reflux disease without esophagitis; R32 Unspecified urinary incontinence; M51.36 Other intervertebral disc degeneration, lumbar region
CPT/HCPCS: 62270; 70553; 72156; 72157; 72158; 77003; 80048; 80053; 81001; 82164; 82945; 83873; 83916; 84157; 85025; 85610; 85652; 85730; 86403; 87070; 87205; 87801; 89051; 99285; A9579; G8987-GP; G8988-GP; J1644; J2930

== ENCOUNTER 2016-12-14 16:59 | Emergency (ER) | payer MEDICAID, OTHER ==
[~2016-12-14] VITALS: Ht 172.7 cm; Wt 68.0 kg
[~2016-12-14 16:59] MED LIST changes: +ALPR.25 PO; +FLUO10TA PO; -IBUP600 PO; -ORPH100T PO; +PRED20 PO; +WALKER WHEELS/F1 MIS
[2016-12-14 17:00] VITALS: BP 142/76; PULSE 84; RESP 16; TEMP 98.3; O2SAT 99
[2016-12-14] MEDS ORDERED: SODIUM CHLORIDE 0.9% FLUSH 10 ML FLUSH IVF PRN (17:30)
[2016-12-14 17:45] VITALS: PULSE 65; O2SAT 97
--- NOTE | 2016-12-14 17:47 | PD ---
HPI Chief Complaint: Pain: Acute or Chronic Time Seen by Provider: 17:28 Travel History International Travel<30 days: No Contact w/Intl Traveler<30days: No Traveled to known affect area: No History of Present Illness HPI 51-year-old male with recent diagnosis of MS, released from the hospital 3 days ago, presents to the ER today because he states that he is having increased dizziness, unsteadiness on his feet, weakness, posterior headaches and eye pressure. He states that most of the symptoms he had when he was admitted to the hospital but they have returned. When questioned further, patient admits that he has not been able to obtain follow-up and has not gotten his medications filled including prednisone which she is supposed to be on. He denies any fevers, neck pain, or other symptoms. Modifying Factors: None Associated Signs & Symptoms: General weakness, dizziness, feeling unsteady, headaches Risk Factors: Recent diagnosis of MS PFSH Past Medical History Blood Disorders: No Anxiety: Yes Depression: No Heart Rhythm Problems: No Cancer: No Cardiovascular Problems: Yes High Cholesterol: No Chest Pain: Yes Congestive Heart Failure: No Diminished Hearing: Yes Endocrine: No Gastrointestinal Disorders: No GERD: Yes Genitourinary: No Immune Disorder: No Musculoskeletal: No Neurologic: Yes (MS) Psychiatric: Yes Reproductive: No Respiratory: No Influenza Vaccination: No Past Surgical History AICD: No Joint Replacement: Yes (left rotator cuff/ clavicle repair years ago ) Pacemaker: No Other Surgery: Yes (LEFT TOE amputation repair) Social History Alcohol Use: No Tobacco Use: Yes (1 PPD) Substance Use: No Allergies-Medications (Allergen,Severity, Reaction): Coded Allergies: Doxycycline (Verified Adverse Reaction, Intermediate, Nausea/Vomiting, 05/22) Reported Meds & Prescriptions Reported Meds & Active Scripts Active No Active Prescriptions or Reported Medications Review of Systems Except as stated in HPI: all other systems reviewed are Neg Physical Exam Narrative GENERAL: Well-developed middle age white male patient in mild distress. Awake and oriented 3. SKIN: Focused skin assessment warm/dry. HEAD: Atraumatic. Normocephalic. EYES: Pupils equal and round. No scleral icterus. No injection or drainage. ENT: No nasal bleeding or discharge. Mucous membranes pink and moist. NECK: Trachea midline. No JVD. CARDIOVASCULAR: Regular rate and rhythm. No murmur appreciated. RESPIRATORY: No accessory muscle use. Clear to auscultation. Breath sounds equal bilaterally. GASTROINTESTINAL: Abdomen soft, non-tender, nondistended. Hepatic and splenic margins not palpable. MUSCULOSKELETAL: No obvious deformities. No clubbing. No cyanosis. No edema. NEUROLOGICAL: Awake and alert. No obvious cranial nerve deficits. Motor grossly within normal limits. Normal speech. Negative Romberg. PSYCHIATRIC: Appropriate mood and affect; insight and judgment normal. Data Data Last Documented VS Vital Signs Date Time Temp Pulse Resp B/P Pulse Ox O2 Delivery O2 Flow Rate FiO2 12/14/16 17:45 65 97 Room Air 12/14/16 17:00 98.3 16 142/76 Orders Electrocardiogram (12/14/16 17:28) Complete Blood Count With Diff (12/14/16 17:28) Comprehensive Metabolic Panel (12/14/16 17:28) Troponin I (12/14/16 17:28) Ct Brain W/O Iv Contrast(Rout) (12/14/16 17:28) Ecg Monitoring (12/14/16:28) Iv Access Insert/Monitor (12/14/16:28) Oximetry (12/14/16 17:28) Sodium Chloride 0.9% Flush (Ns Flush) (12/14/16 17:30) Methylprednisolone So Succ Inj (Solumedr (12/14/16 18:45) Labs Laboratory Tests Test 12/14/16 17:45 White Blood Count 11.5 TH/MM3 Red Blood Count 5.12 MIL/MM3 Hemoglobin 14.5 GM/DL Hematocrit 43.7 % Mean Corpuscular Volume 85.4 FL Mean Corpuscular Hemoglobin 28.4 PG Mean Corpuscular Hemoglobin 33.3 % Concent Red Cell Distribution Width 14.4 % Platelet Count 185 TH/MM3 Mean Platelet Volume 10.1 FL Neutrophils (%) (Auto) 62.5 % Lymphocytes (%) (Auto) 25.0 % Monocytes (%) (Auto) 9.4 % Eosinophils (%) (Auto) 2.8 % Basophils (%) (Auto) 0.3 % Neutrophils # (Auto) 7.2 TH/MM3 Lymphocytes # (Auto) 2.9 TH/MM3 Monocytes # (Auto) 1.1 TH/MM3 Eosinophils # (Auto) 0.3 TH/MM3 Basophils # (Auto) 0.0 TH/MM3 CBC Comment DIFF FINAL Differential Comment Sodium Level 140 MEQ/L Potassium Level 3.6 MEQ/L Chloride Level 102 MEQ/L Carbon Dioxide Level 29.6 MEQ/L Anion Gap 8 MEQ/L Blood Urea Nitrogen 14 MG/DL Creatinine 0.92 MG/DL Estimat Glomerular Filtration 87 ML/MIN Rate Random Glucose 86 MG/DL Calcium Level 8.6 MG/DL Total Bilirubin 0.6 MG/DL Aspartate Amino Transf 23 U/L (AST/SGOT) Alanine Aminotransferase 60 U/L (ALT/SGPT) Alkaline Phosphatase 66 U/L Troponin I LESS THAN 0.02 NG/ML Total Protein 6.6 GM/DL Albumin 3.1 GM/DL MDM Medical Decision Making Medical Screen Exam Complete: Yes Emergency Medical Condition: Yes Medical Record Reviewed: Yes Interpretation(s) Laboratory Tests Test 12/14/16 17:45 White Blood Count 11.5 TH/MM3 (4.0-11.0) Monocytes (%) (Auto) 9.4 % (0.0-8.0) Monocytes # (Auto) 1.1 TH/MM3 (0-0.9) Estimat Glomerular Filtration 87 ML/MIN (>89) Rate Troponin I LESS THAN 0.02 NG/ML (0.02-0.05) Albumin 3.1 GM/DL (3.4-5.0) Last [address] 12/14/16 1728 Signed Impressions: Service Date/Time: Thursday, December 14, 2016 17:50 - CONCLUSION: Normal examination. Danial Hawk Jr., MD Differential Diagnosis MS exacerbation versus metabolic abnormalities versus dehydration versus CVA versus acute intracranial processes Narrative Course CAT scan did not show any signs of acute processes. Patient did not have any focal neurological deficits. However, symptoms are consistent with his MS symptoms. Patient has not filled penicillin which is suspect is causing some exacerbation. Solu-Medrol was given in the ER. At this point, I have talked to the patient and and they state that they had tried to call Dr. Rea on Thursday but did not receive an answer back at this time. At this point, I do not suspect acute issues and patient had recently been seen a release for the same thing. My plan would be to release him with follow-up to neurologist and have him fill his prescription of prednisone. Return for new issues as needed. The plan has been discussed with the patient and he states understanding. Diagnosis Primary Impression: Multiple sclerosis Referrals: Alan Harman MD [facility] No Active Prescriptions or Reported Meds Disposition: 01 DISCHARGE HOME Condition: Stable Moises Mota MD Dec 14, 2016 17:46
--- NOTE | 2016-12-14 18:05 | RADRPT ---
EXAM DATE/TIME: 12/14/2016 17:50 [facility] COMPARISON: CT BRAIN W/O CONTRAST, March 09, 2016, 17:40. INDICATIONS : Dizziness; cephalgia. RADIATION DOSE: 56.35 CTDIvol (mGy) MEDICAL HISTORY : Cardiovascular disease. MS SURGICAL HISTORY : None. ENCOUNTER: Initial ACUITY: 1 day PAIN SCALE: 5/10 LOCATION: cranial TECHNIQUE: Multiple contiguous axial images were obtained of the head. Using automated exposure control and adj ustment of the mA and/or kV according to patient size, radiation dose was kept as low as reasonably a chievable to obtain optimal diagnostic quality images. FINDINGS: CEREBRUM: The ventricles are normal for age. No evidence of midline shift, mass lesion, hemorrhage or acute in farction. No extra-axial fluid collections are seen. POSTERIOR FOSSA: The cerebellum and brainstem are intact. The 4th ventricle is midline. The cerebellopontine angle i s unremarkable. EXTRACRANIAL: The visualized portion of the orbits is intact. SKULL: The calvaria is intact. No evidence of skull fracture. CONCLUSION: Normal examination. Danial Hawk Jr., MD on December 14, 2016 at 18:02 Board Certified Radiologist. This report was verified electronically.
[2016-12-14 18:18] LABS: AUTOMATED NEUTROPHIL # 7.2 TH/MM3 (1.8-7.7); BASOPHIL % 0.3 % (0.0-2.0); EOSINOPHIL # 0.3 TH/MM3 (0-0.4); EOSINOPHIL % 2.8 % (0.0-4.0); HEMATOCRIT 43.7 % (39.0-51.0); HEMO FLAGS DIFF FINAL; LYMPHOCYTE # 2.9 TH/MM3 (1.0-4.8); MEAN CELL VOLUME 85.4 FL (80.0-100.0); MEAN CORPUSCULAR HEMOGLOBIN 28.4 PG (27.0-34.0); MEAN CORPUSCULAR HGB CONC 33.3 % (32.0-36.0); MONO % 9.4 % (0.0-8.0); NEUT % 62.5 % (16.0-70.0); PLATELET COUNT 185 TH/MM3 (150-450); RED BLOOD COUNT 5.12 MIL/MM3 (4.50-5.90); RED CELL DISTRIBUTION WIDTH 14.4 % (11.6-17.2); WHITE BLOOD COUNT 11.5 TH/MM3 (4.0-11.0)
[2016-12-14 18:34] LABS: ALT (GPT) 60 U/L (12-78)
[2016-12-14 18:35] LABS: ANION GAP 8 MEQ/L (5-15); AST (GOT) 23 U/L (15-37); BICARBONATE 29.6 MEQ/L (21.0-32.0); BLOOD UREA NITROGEN 14 MG/DL (7-18); CHLORIDE 102 MEQ/L (98-107); GLOMERULAR FILTRATION RATE 87 ML/MIN (>89); POTASSIUM 3.6 MEQ/L (3.5-5.1); SODIUM (NA) 140 MEQ/L (136-145)
[2016-12-14 18:38] LABS: ALKALINE PHOSPHATASE 66 U/L (45-117); TOTAL BILIRUBIN ADULT 0.6 MG/DL (0.2-1.0)
[2016-12-14] MEDS ORDERED: methylPREDNISolone SOD SUCC 125 MG/2 ML VIAL IV PUSH ONE (18:45)
[2016-12-14 19:32] VITALS: BP 144/71
--- NOTE | 2016-12-15 11:48 | EKG ---
Date Performed: 12/14/2016 Time Performed: 18:11:36 PTAGE: 51 years EKG: SINUS BRADYCARDIA Since previous tracing, no significant change noted BORDERLINE ECG PREVIOUS TRACING : 11/18/2012 10.02 DOCTOR: Gideon Tao Interpretating Date/Time 12/15/2016 11:46:29
== END 2016-12-14 19:33 | disposition home or self-care (01) ==
LOC: NEPC 16:59
DX: G35 Multiple sclerosis (principal); R51 Headache; K21.9 Gastro-esophageal reflux disease without esophagitis; F17.200 Nicotine dependence, unspecified, uncomplicated
CPT/HCPCS: 70450; 80053; 84484; 85025; 93005; 96374; 99285; J2930

== ENCOUNTER 2017-01-01 20:20 | Emergency (ER) | payer MEDICAID, OTHER ==
[~2017-01-01] VITALS: Ht 180.3 cm; Wt 76.0 kg
[2017-01-01 20:23] VITALS: BP 154/90; PULSE 64; RESP 16; TEMP 98.4; O2SAT 99
[2017-01-01 20:48] VITALS: BP 150/72; PULSE 60; RESP 18; O2SAT 95
[2017-01-01] MEDS ORDERED: ALPR0.25 PO (20:48)
[2017-01-01] MEDS ORDERED: SODIUM CHLOR 0.9% 1000 ML INJ 1,000 ML IV ONE ×2 (20:56→21:00)
[2017-01-01] MEDS ORDERED: DEXAMETHASONE SOD PHOS 20 MG/5 ML VIAL IV PUSH ONE (21:00)
[2017-01-01] MEDS ORDERED: SODIUM CHLORIDE 0.9% FLUSH 10 ML FLUSH IVF PRN (21:00)
[2017-01-01] MEDS ORDERED: KETOROLAC TROMETHAMINE 30 MG/ML (IVP) VIAL IVP ONE (21:00)
[2017-01-01] MEDS ORDERED: METOCLOPRAMIDE HCL 10 MG/2 ML VIAL IVP ONE (21:00)
[2017-01-01 21:05] VITALS: O2SAT 99
--- NOTE | 2017-01-01 21:20 | RADRPT ---
EXAM DATE/TIME: 01/01/2017 21:09 [facility] COMPARISON: No previous studies available for comparison. INDICATIONS : Cough, chest pain MEDICAL HISTORY : None. SURGICAL HISTORY : None. ENCOUNTER: Initial ACUITY: 2 weeks PAIN SCORE: 9/10 LOCATION: Bilateral chest FINDINGS: PA and lateral views of the chest demonstrate the lungs to be symmetrically aerated without evidence of mass, infiltrate or effusion. The cardiomediastinal contours are unremarkable. Osseous structure s are intact. There is an old left midclavicular fracture. CONCLUSION: No acute disease. There is no evidence of pneumonia. Sanjiv Cheng MD on January 01, 2017 at 21:16 Board Certified Radiologist. This report was verified electronically.
--- NOTE | 2017-01-01 21:26 | PD ---
HPI Chief Complaint: General Weakness Time Seen by Provider: 20:43 Travel History International Travel<30 days: No Contact w/Intl Traveler<30days: No Traveled to known affect area: No History of Present Illness HPI Patient is a 51-year-old male with recently diagnosed multiple sclerosis, presents to emergency room with complaints of headache. Reports that he began having a headache this afternoon, reports that he has been having vision changes at this headache, he has been also feeling nauseous with the symptoms. Patient reports that for the past few days, he has had increased sinus congestion with postnasal drip. Patient reports that with his nasal congestion and postnasal drip, he has had a cough and has been producing clear mucus. Patient reports no fevers, reports intermittent chills. Patient reports that he feels generalized weakness, reports that that has been ongoing for the past month and unchanged since he was diagnosed with multiple sclerosis. Patient reports that he follows with Dr. Rodríguez with neurology as has recently had full workup including MRI of his brain, as well as LP for workup of his multiple sclerosis. Patient is due to see a specialist at [facility] on January 29. [facility] Past Medical History Blood Disorders: No Anxiety: Yes Depression: No Heart Rhythm Problems: No Cancer: No Cardiovascular Problems: Yes High Cholesterol: No Chest Pain: Yes Congestive Heart Failure: No Diminished Hearing: Yes Endocrine: No Gastrointestinal Disorders: No GERD: Yes Genitourinary: No Hypertension: No Immune Disorder: No Implanted Vascular Access Dvce: No Musculoskeletal: No Neurologic: Yes (MS) Psychiatric: Yes Reproductive: No Respiratory: No Past Surgical History AICD: No Joint Replacement: Yes (left rotator cuff/ clavicle repair years ago ) Pacemaker: No Other Surgery: Yes (LEFT TOE amputation repair) Social History Alcohol Use: No Tobacco Use: Yes (1 PPD) Substance Use: No Allergies-Medications (Allergen,Severity, Reaction): Coded Allergies: Doxycycline (Verified Adverse Reaction, Intermediate, Nausea/Vomiting, ) Reported Meds & Prescriptions Reported Meds & Active Scripts Active Augmentin (Amoxicillin-Clavulanate) 875-125 Mg Tab 1 Tab PO BID 7 Days Reported Alprazolam 0.25 Mg Tab 0.25 Mg PO Q4H PRN Review of Systems General / Constitutional: No: Fever Eyes: No: Visual changes HENT: Positive: Headaches, Lightheadedness, Rhinorrhea Cardiovascular: No: Chest Pain or Discomfort Respiratory: Positive: Cough, No: Shortness of Breath Gastrointestinal: No: Abdominal Pain Genitourinary: No: Dysuria Musculoskeletal: No: Pain Skin: No Rash Neurologic: No: Weakness Psychiatric: No: Depression Endocrine: No: Polydipsia Hematologic/Lymphatic: No: Easy Bruising Physical Exam Narrative GENERAL: Mild distress SKIN: Focused skin assessment warm/dry. HEAD: Atraumatic. Normocephalic. Patient with increased sinus tenderness to maxillary sinus EYES: Pupils equal and round. No scleral icterus. No injection or drainage. ENT: No nasal bleeding or discharge. Mucous membranes pink and moist. NECK: Trachea midline. No JVD. CARDIOVASCULAR: Regular rate and rhythm. No murmur appreciated. RESPIRATORY: No accessory muscle use. Patient with slight wheeze to lower lobes of lung. Breath sounds equal bilaterally. GASTROINTESTINAL: Abdomen soft, non-tender, nondistended. Hepatic and splenic margins not palpable. MUSCULOSKELETAL: No obvious deformities. No clubbing. No cyanosis. No edema. NEUROLOGICAL: Awake and alert. No obvious cranial nerve deficits. Motor grossly within normal limits. Normal speech. Cranial nerves 2- 12 grossly intact with no neurological deficits PSYCHIATRIC: Appropriate mood and affect; insight and judgment normal. Data Data Last Documented VS Vital Signs Date Time Temp Pulse Resp B/P Pulse Ox O2 Delivery O2 Flow Rate FiO2 01/01/17 21:05 99 Room Air 01/01/17 20:48 60 18 150/72 01/01/17 20:23 98.4 Orders Complete Blood Count With Diff (01/01/17 20:56) Comprehensive Metabolic Panel (01/01/17 20:56) Iv Access Insert/Monitor (01/01/17 20:56) Oximetry (01/01/17 20:56) Sodium Chloride 0.9% Flush (Ns Flush) (01/01/17 21:00) Ketorolac Inj (Toradol Inj) (01/01/17 21:00) Metoclopramide Inj (Reglan Inj) (01/01/17 21:00) Sodium Chlor 0.9% 1000 Ml Inj (Ns 1000 M (01/01/17 20:56) Dexamethasone Inj (Decadron Inj) (01/01/17 21:00) Sodium Chlor 0.9% 1000 Ml Inj (Ns 1000 M (01/01/17 21:00) Chest, Pa & Lat (01/01/17 20:56) Amoxicil-Clavulanate (Augmentin) (01/01/17 23:00) Labs Laboratory Tests Test 01/01/17 01/01/17 21:19 21:51 White Blood Count 7.7 TH/MM3 Red Blood Count 5.16 MIL/MM3 Hemoglobin 14.8 GM/DL Hematocrit 44.2 % Mean Corpuscular Volume 85.5 FL Mean Corpuscular Hemoglobin 28.7 PG Mean Corpuscular Hemoglobin 33.6 % Concent Red Cell Distribution Width 15.0 % Platelet Count 292 TH/MM3 Mean Platelet Volume 8.7 FL Neutrophils (%) (Auto) 46.1 % Lymphocytes (%) (Auto) 36.4 % Monocytes (%) (Auto) 12.3 % Eosinophils (%) (Auto) 3.8 % Basophils (%) (Auto) 1.4 % Neutrophils # (Auto) 3.5 TH/MM3 Lymphocytes # (Auto) 2.8 TH/MM3 Monocytes # (Auto) 0.9 TH/MM3 Eosinophils # (Auto) 0.3 TH/MM3 Basophils # (Auto) 0.1 TH/MM3 CBC Comment DIFF FINAL Differential Comment Sodium Level 141 MEQ/L Potassium Level 3.5 MEQ/L Chloride Level 108 MEQ/L Carbon Dioxide Level 27.4 MEQ/L Anion Gap 6 MEQ/L Blood Urea Nitrogen 8 MG/DL Creatinine 0.80 MG/DL Estimat Glomerular Filtration 102 ML/MIN Rate Random Glucose 88 MG/DL Calcium Level 8.3 MG/DL Total Bilirubin 0.7 MG/DL Aspartate Amino Transf 17 U/L (AST/SGOT) Alanine Aminotransferase 18 U/L (ALT/SGPT) Alkaline Phosphatase 63 U/L Total Protein 6.2 GM/DL Albumin 2.8 GM/DL MDM Medical Decision Making Medical Screen Exam Complete: Yes Emergency Medical Condition: Yes Interpretation(s) Vital Signs Date Time Temp Pulse Resp B/P Pulse Ox O2 Delivery O2 Flow Rate FiO2 01/01/17 21:05 99 Room Air 01/01/17 20:48 60 18 150/72 95 01/01/17 20:23 98.4 64 16 154/90 99 Room Air Differential Diagnosis Patient's symptoms could be due to Complicated migraine versus MS exacerbation versus sinusitis versus pneumonia versus electrolyte abnormality Narrative Course Patient is a 51-year-old male who presents to emergency room with complaints of headache, dizziness, sinus congestion with postnasal drip and cough for the past few days. Patient has a benign physical exam with no neurological deficits at this time. Patient with most likely sinusitis causing his postnasal drip and cough. Patient was placed on a forest patrolman upon arrival to emergency room. Basic lab work as well as x-ray of the chest ordered to evaluate for electrolyte abnormality versus infection. Patient was given IV fluids, migraine cocktail. Plan to monitor patient. Patient re-evaluated, patient reports that he is feeling much better at this time, patient with near resolution of headache. CBC & BMP Diagram 01/01/17 21:19 CBC & BMP Diagram 01/01/17 21:19 01/01/17 21:51 patient feeling much better at this time. patient with resolution of symptoms. patient will follow up with his neurologist and will return to ER as needed Diagnosis Primary Impression: Cephalgia Qualified Code: R51 - Acute nonintractable headache, unspecified headache type Additional Impression: Sinusitis Qualified Code: J01.10 - Acute non-recurrent frontal sinusitis Patient Instructions: General Instructions Additional Instructions: Return to ER as needed Please take all antibiotics as prescribed Please follow up with your primary care doctor as well as your neurologist Please drink plenty of fluids Med/Other Pt SpecificInfo: Prescription(s) given Scripts Amoxicillin-Clavulanate (Augmentin)875-125 Mg Tab1 Tab PO BID 7 Days Ref 0 Prov:Devora Loja DO 01/01/17 Disposition: 01 DISCHARGE HOME Condition: Stable Devora Loja DO Jan 01, 2017 21:26
[2017-01-01 21:42] LABS: AUTOMATED NEUTROPHIL # 3.5 TH/MM3 (1.8-7.7); BASOPHIL # 0.1 TH/MM3 (0-0.2); BASOPHIL % 1.4 % (0.0-2.0); EOSINOPHIL # 0.3 TH/MM3 (0-0.4); EOSINOPHIL % 3.8 % (0.0-4.0); HEMATOCRIT 44.2 % (39.0-51.0); HEMO FLAGS DIFF FINAL; LYMPH % 36.4 % (9.0-44.0); LYMPHOCYTE # 2.8 TH/MM3 (1.0-4.8); MEAN CELL VOLUME 85.5 FL (80.0-100.0); MEAN CORPUSCULAR HEMOGLOBIN 28.7 PG (27.0-34.0); MEAN CORPUSCULAR HGB CONC 33.6 % (32.0-36.0); MONO % 12.3 % (0.0-8.0); NEUT % 46.1 % (16.0-70.0); PLATELET COUNT 292 TH/MM3 (150-450); RED BLOOD COUNT 5.16 MIL/MM3 (4.50-5.90); WHITE BLOOD COUNT 7.7 TH/MM3 (4.0-11.0)
[2017-01-01] MEDS ORDERED: AUGM875T3 PO (22:17)
[2017-01-01 22:24] LABS: ALT (GPT) 18 U/L (12-78)
[2017-01-01 22:27] LABS: ALKALINE PHOSPHATASE 63 U/L (45-117); TOTAL BILIRUBIN ADULT 0.7 MG/DL (0.2-1.0)
[2017-01-01 22:29] LABS: ANION GAP 6 MEQ/L (5-15); AST (GOT) 17 U/L (15-37); BICARBONATE 27.4 MEQ/L (21.0-32.0); BLOOD UREA NITROGEN 8 MG/DL (7-18); CHLORIDE 108 MEQ/L (98-107); GLOMERULAR FILTRATION RATE 102 ML/MIN (>89); SODIUM (NA) 141 MEQ/L (136-145)
[2017-01-01 22:37] LABS: POTASSIUM 3.5 MEQ/L (3.5-5.1)
[2017-01-01] MEDS ORDERED: AMOXICILLIN/CLAVULANATE K 875 MG TAB PO ONE (23:00)
== END 2017-01-01 23:12 | disposition home or self-care (01) ==
LOC: NEPE 20:20
DX: R51 Headache (principal); J32.9 Chronic sinusitis, unspecified; R42 Dizziness and giddiness; G35 Multiple sclerosis; K21.9 Gastro-esophageal reflux disease without esophagitis; F41.9 Anxiety disorder, unspecified; F17.200 Nicotine dependence, unspecified, uncomplicated; Z79.899 Other long term (current) drug therapy; Z88.8 Allergy status to other drugs, medicaments and biological substances
CPT/HCPCS: 71020; 80053; 85025; 96361; 96374; 96375; 99284; J1100; J1885; J2765; J7030

== ENCOUNTER 2017-05-11 15:20 | Emergency (ER) | payer OTHER ==
[~2017-05-11 15:20] MED LIST changes: -ALPR.25 PO; +ALPR0.25 PO; +AUGM875T3 PO; -FLUO10TA PO; -PRED20 PO; -WALKER WHEELS/F1 MIS
[2017-05-11 15:21] VITALS: BP 152/87; PULSE 72; RESP 12; TEMP 98.3; O2SAT 99
--- NOTE | 2017-05-11 16:10 | RADRPT ---
EXAM DATE/TIME: 05/11/2017 15:51 [facility] COMPARISON: CT BRAIN W/O CONTRAST, December 14, 2016, 17:50. INDICATIONS : Trauma, fall today onto head. RADIATION DOSE: 56.35 CTDIvol (mGy) MEDICAL HISTORY : Multple sclerosis. Cardiovascular disease SURGICAL HISTORY : None. ENCOUNTER: Initial ACUITY: 1 day PAIN SCALE: 4/10 LOCATION: Bilateral head TECHNIQUE: Multiple contiguous axial images were obtained of the head. Using automated exposure control and adj ustment of the mA and/or kV according to patient size, radiation dose was kept as low as reasonably a chievable to obtain optimal diagnostic quality images. DICOM format image data is available electro nically for review and comparison. FINDINGS: CEREBRUM: The ventricles are normal for age. No evidence of midline shift, mass lesion, hemorrhage or acute in farction. No extra-axial fluid collections are seen. POSTERIOR FOSSA: The cerebellum and brainstem are intact. The 4th ventricle is midline. The cerebellopontine angle i s unremarkable. EXTRACRANIAL: The visualized portion of the orbits is intact. SKULL: The calvaria is intact. No evidence of skull fracture. CONCLUSION: No acute intracranial disease. Simon Oliva MD on May 11, 2017 at 16:06 Board Certified Radiologist. This report was verified electronically.
--- NOTE | 2017-05-11 16:15 | RADRPT ---
EXAM DATE/TIME: 05/11/2017 15:52 [facility] COMPARISON: CT CERVICAL SPINE W/O CONTRAST, March 09, 2016, 17:40. INDICATIONS : Trauma, fall today onto head. RADIATION DOSE: 31.52 CTDIvol (mGy) MEDICAL HISTORY : Multple sclerosis. Cardiovascular disease SURGICAL HISTORY : None. ENCOUNTER: Initial ACUITY: 1 day PAIN SCALE: 9/10 LOCATION: Bilateral neck TECHNIQUE: Volumetric scanning of the cervical spine was performed. Multiplanar reconstructions in the sagittal, coronal and oblique axial planes were performed. Using automated exposure control and adjustment o f the mA and/or kV according to patient size, radiation dose was kept as low as reasonably achievable to obtain optimal diagnostic quality images. DICOM format image data is available electronically f or review and comparison. FINDINGS: Vertebral body heights are maintained. Osseous structures are intact without evidence for acute bony fracture. Dens is intact. Sagittal alignment is maintained. There is a normal C1-2 relationship. Face ts are normally aligned. There is no significant prevertebral soft tissue hematoma. Mild degenerative spondylosis with uncovertebral osteophytes most prominently at C3-5. No significant cervical adenopa thy or gross mass. The thyroid appears unremarkable. Visualized lung apices demonstrate mild parasept al emphysema without pneumothorax. CONCLUSION: 1. No acute fracture or subluxation. Kayden Sahu MD on May 11, 2017 at 16:10 Board Certified Radiologist. This report was verified electronically.
--- NOTE | 2017-05-11 16:15 | PD ---
HPI Chief Complaint: Head Injury Time Seen by Provider: 16:05 Travel History International Travel<30 days: No Contact w/Intl Traveler<30days: No Traveled to known affect area: No History of Present Illness HPI 51-year-old male with a history of MS for approximately 1 year complains of head and neck and back pain that occurred after a fall just prior to arrival. States that he had an episode of weakness, losing his footing, falling, hitting his head on his truck. States he has a severe headache at this point. Denies blurred vision, dizziness, or abnormal weakness or tingling. Patient normally has mild loss of bowel function because of his MS. Patient denies history of IV drug use or personal history of cancer. States his neck pain is mild, increases with movement and decreases with rest. His low back pain is mild, increases with movement and decreases with rest. Denies fever, chills, chest pain, shortness of breath, abdominal pain, leg pain. Pt follow neurology and PCP regularly. PFSH Past Medical History Blood Disorders: No Anxiety: Yes Depression: No Heart Rhythm Problems: No Cancer: No Cardiovascular Problems: Yes High Cholesterol: No Chest Pain: Yes Congestive Heart Failure: No Diminished Hearing: Yes Endocrine: No Gastrointestinal Disorders: No GERD: Yes Genitourinary: No Hypertension: No Immune Disorder: No Implanted Vascular Access Dvce: No Musculoskeletal: No Neurologic: Yes (MS) Psychiatric: Yes Reproductive: No Respiratory: No Past Surgical History AICD: No Joint Replacement: Yes (left rotator cuff/ clavicle repair years ago ) Pacemaker: No Other Surgery: Yes (LEFT TOE amputation repair) Social History Alcohol Use: No Tobacco Use: Yes (1 PPD) Substance Use: No Allergies-Medications (Allergen,Severity, Reaction): Coded Allergies: doxycycline (Unverified Adverse Reaction, Intermediate, Nausea/Vomiting, 05/11/17) Reported Meds & Prescriptions Reported Meds & Active Scripts Active Ibuprofen 800 Mg Tab 800 Mg PO TID 5 Days Review of Systems Except as stated in HPI: all other systems reviewed are Neg Physical Exam Narrative GENERAL: Well-nourished in no apparent distress SKIN: Focused skin assessment warm/dry. HEAD: Atraumatic. Normocephalic. NECK: Supple, nontender. No meningeal signs. Trachea midline. No JVD or lymphadenopathy. Mild tenderness to palpation along the C6 region of the cervical spine EYES: Pupils equal and round. No scleral icterus. No injection or drainage. EOMI ENT: No nasal bleeding or discharge. Mucous membranes pink and moist. NECK: Trachea midline. No JVD. CARDIOVASCULAR: Regular rate and rhythm. No murmur appreciated. RESPIRATORY: No accessory muscle use. Clear to auscultation. Breath sounds equal bilaterally. GASTROINTESTINAL: Abdomen soft, non-tender, nondistended. Hepatic and splenic margins not palpable. MUSCULOSKELETAL: No obvious deformities. No clubbing. No cyanosis. No edema. NEUROLOGICAL: Awake and alert. No obvious cranial nerve deficits. Motor grossly within normal limits. Normal speech. Patient has abnormal sensation, decreased especially in the upper extremities, which is normal for him per patient. No appreciable weakness of upper or lower extremities. BACK: No CVA tenderness. No rash. Point tenderness on palpation of the spine about L1 to L2 PSYCHIATRIC: Appropriate mood and affect; insight and judgment normal. Data Data Last Documented VS Vital Signs Date Time Temp Pulse Resp B/P (MAP) Pulse Ox O2 Delivery O2 Flow Rate FiO2 05/11/17 18:31 05/11/17 15:21 98.3 [address] Brain W/O Iv Contrast(Rout) (05/11/17 ) Ct Cerv Spine W/O Contrast (05/11/17 ) Apply Cervical Collar (05/11/17 15:37) Ct Lumb Spine W/O Contrast (05/11/17 ) Ketorolac Inj (Toradol Inj) (05/11/17 16:30) Ed Discharge Order (05/11/17 18:07) MDM Medical Decision Making Medical Screen Exam Complete: Yes Emergency Medical Condition: Yes Differential Diagnosis Whiplash versus cervical sprain versus cervical strain versus fracture Head contusion versus abrasion versus fracture Lower back strain versus sprain versus fracture Narrative Course 51-year-old male with a history of MS for approximately 1 year complains of head and neck and back pain that occurred after a fall just prior to arrival. States that he had an episode of weakness, losing his footing, falling, hitting his head on his truck. States he has a severe headache at this point. Denies blurred vision, dizziness, or abnormal weakness or tingling. Patient normally has mild loss of bowel function because of his MS. Patient denies history of IV drug use or personal history of cancer. States his neck pain is mild, increases with movement and decreases with rest. His low back pain is mild, increases with movement and decreases with rest. Denies fever, chills, chest pain, shortness of breath, abdominal pain, leg pain. Pt follow neurology and PCP regularly. Physical exam demonstrates TTP to neck and back. Because of pt history, obtained CT of head, neck, and back to evaluate for acute bony abnormalities. Imaging study without acute process. Pt advised to used medication as prescribed. Return for worsening symptoms. Patient safety in and around home. Consider walker use. Follow up with neuro within 2 days. Diagnosis Primary Impression: Cervical sprain Qualified Codes: S13.9XXA - Sprain of joints and ligaments of unspecified parts of neck, initial encounter Additional Impressions: Contusion Qualified Codes: S00.93XA - Contusion of unspecified part of head, initial encounter Lumbar contusion Qualified Codes: S30.0XXA - Contusion of lower back and pelvis, initial encounter Referrals: Neurologist Additional Instructions: Follow-up with her neurologist within 2 days Follow up with her primary care physician within 2 days Perform light stretches of the lower back and legs, and alternate heat and ice packs. If you develop increased pain, weakness, fever, chills, or bowel or bladder issues, return to the ED for further treatment and evaluation. Follow up with your primary care physician in 2-3 days. Scripts Ibuprofen (Ibuprofen) 800 Mg Tab 800 MG PO TID for Arthritis Pain for 5 Days, TAB 0 Refills Prov: Jane Prater MD 05/11/17 Disposition: 01 DISCHARGE HOME Condition: Stable Dali Torres May 11, 2017 16:15
[2017-05-11] MEDS ORDERED: KETOROLAC TROMETHAMINE 60 MG/2 ML (IM) VIAL IM ONE (16:30)
--- NOTE | 2017-05-11 16:36 | PD ---
Physical Exam Date Seen by Provider: May 11, 2017 Time Seen by Provider: 16:25 Narrative Neck and low back pain following a fall. Data Data Last Documented VS Vital Signs Date Time Temp Pulse Resp B/P (MAP) Pulse Ox O2 Delivery O2 Flow Rate FiO2 05/11/17 15:21 98.3 72 12 152/87 (108) [address] Brain W/O Iv Contrast(Rout) (05/11/17 ) Ct Cerv Spine W/O Contrast (05/11/17 ) Apply Cervical Collar (05/11/17 15:37) Ct Lumb Spine W/O Contrast (05/11/17 ) Ketorolac Inj (Toradol Inj) (05/11/17 16:30) MDM Supervised Visit with JEREMIAH: Yes Narrative Course I, Dr. Prater, have reviewed the advance practice practitioner's documentation and am in agreement, met with the patient face to face, made the diagnosis, and the medical decision making was done by me. *My assessment and Findings: Patient is awake and alert and fully oriented. He has some lower neck and lumbar tenderness. CTs are pending. Please see Dali Torres PA-C's note for further details, lab and radiology results, final diagnosis and disposition. Scripts No Active Prescriptions or Reported Meds Jane Prater MD May 11, 2017 16:36
--- NOTE | 2017-05-11 17:50 | RADRPT ---
EXAM DATE/TIME: 05/11/2017 16:29 [facility] COMPARISON: No previous studies available for comparison. INDICATIONS : Patient fell, injuring low back. RADIATION DOSE: 17.21 CTDIvol (mGy) MEDICAL HISTORY : Multple sclerosis. Cardiovascular disease SURGICAL HISTORY : None. ENCOUNTER: Initial ACUITY: 1 day PAIN SCALE: 9/10 LOCATION: Right low back TECHNIQUE: Volumetric scanning of the lumbar spine was performed. Multiplanar reconstructions in the sagittal, coronal and oblique axial planes were performed. Using automated exposure control and adjustment of the mA and/or kV according to patient size, radiation dose was kept as low as reasonably achievable t o obtain optimal diagnostic quality images. DICOM format image data is available electronically for review and comparison. FINDINGS: VERTEBRAE: Normal vertebral body height. ALIGNMENT: No evidence of subluxation. T12-L1: The thecal sac has a normal diameter. No evidence of disc bulge or protrusion. The neural foramina are patent bilaterally. L1-L2: The thecal sac has a normal diameter. No evidence of disc bulge or protrusion. The neural foramina are patent bilaterally. L2-L3: The thecal sac has a normal diameter. No evidence of disc bulge or protrusion. The neural foramina are patent bilaterally. L3-L4: The thecal sac has a normal diameter. No evidence of disc bulge or protrusion. The neural foramina are patent bilaterally. L4-L5: The thecal sac has a normal diameter. No evidence of disc bulge or protrusion. The neural foramina are patent bilaterally. L5-S1: The thecal sac has a normal diameter. No evidence of disc bulge or protrusion. The neural foramina are patent bilaterally. CONCLUSION: Negative exam. No fracture. Minimal atherosclerotic calcification of the regional vasculature Claudio Chappell MD on May 11, 2017 at 17:46 Board Certified Radiologist. This report was verified electronically.
[2017-05-11] MEDS ORDERED: IBUP1TAB7 PO (18:06)
== END 2017-05-11 18:58 | disposition home or self-care (01) ==
LOC: NEPD 15:20
DX: S13.4XXA Sprain of ligaments of cervical spine, initial encounter (principal); S30.0XXA Contusion of lower back and pelvis, initial encounter; S00.93XA Contusion of unspecified part of head, initial encounter; F17.200 Nicotine dependence, unspecified, uncomplicated; W19.XXXA Unspecified fall, initial encounter
CPT/HCPCS: 70450; 72125; 72131; 96374; 99285; J1885

== ENCOUNTER 2018-03-14 18:35 | Observation (INO) ==
--- NOTE | 2018-03-14 20:35 | XR ---
EXAM DATE: 03/14/2018 8:31 PM EDT AGE/SEX: 52 years / Male INDICATIONS: Chest pain CLINICAL DATA: This is the patient's initial encounter. Patient reports that signs and symptoms have been present for 1 week and indicates a pain score of 0/10. MEDICAL/SURGICAL HISTORY: . Multiple sclerosis. Cardiovascular disease None. COMPARISON: [facility] – [place], CHEST PA & LAT, 01/01/2017. . FINDINGS: A single AP view of the chest demonstrates the lungs to be symmetrically aerated without evidence of mass, infiltrate or effusion. The cardiomediastinal contours are unremarkable. Osseous structures a re intact with old fracture deformity again noted involving the left mid clavicle. CONCLUSION: No acute cardiopulmonary disease. Electronically signed by: Sanjiv Cheng MD 03/14/2018 8:33 PM EDT
--- NOTE | 2018-03-14 21:43 | ED ---
HPI General Chief complaint: Weakness Stated complaint: weak and needs catheter removed Time Seen by Provider: 03/14/18 20:08 Source: patient History of Present Illness HPI narrative: The patient is a 52 year old male who presents to the [facility] emergency department with a history of collapsing today after experiencing irregular heart beats while resting on the couch. The patient has a known diagnosis of MS with bilateral leg weakness and use of power chair for ambulating. At baseline he is able to walk across his house with use of surrounding structures for support. He notes that he was relaxing on the couch and fell asleep very rapidly, when he awoke he had irregular heart beats alternating between fast and slow. When he attempted to ambulate he collapsed. He was recently seen in the ER 10 days previous for abdominal pain and was found to have urinary retention, a Sanabria was placed and he was referred to follow-up with urology which he has not been able to do. His MS was diagnosed 1 year ago and followed by neurology in [place]. Endorses night sweats for 1 year, urinary retention, and constipation with last bowel movement over 10 days ago. Denies chest pain, fevers, cough, changes in vision. Related Data Home Medications Medication Instructions Recorded Confirmed ocrelizumab [Ocrevus] 600 mg IV [id number] 03/14/18 03/14/18 Previous Rx's Medication Instructions Recorded tamsulosin [Flomax] 0.4 mg PO DAILY #30 cap 03/05/18 Allergies Allergy/AdvReac Type Severity Reaction Status Date / Time doxycycline AdvReac Intermediate Nausea/Vomi Verified 03/14/18 19:16 ting Review of Systems Constitutional Reports night sweats and Reports poor appetite Eyes Reports blurry vision ENT Reports system reviewed and no additional complaints, except as docu Cardiovascular Denies chest pain, Denies lightheadedness and Denies dyspnea Respiratory Denies chest congestion and Denies cough Gastrointestinal Denies hematochezia and Reports constipation Genitourinary Reports difficulty urinating Musculoskeletal Reports muscle weakness, Reports numbness and Reports tingling Integumentary/Breasts Reports system reviewed and no additional complaints, except as docu Neurologic Denies confusion, Denies dizziness and Denies headache(s) Psychiatric Reports system reviewed and no additional complaints, except as docu Endocrine Reports system reviewed and no additional complaints, except as docu Hematologic/Lymphatic Reports system reviewed and no additional complaints, except as docu [facility] Medical History Medical History Enlarged prostate with urinary retention (Acute) Enlarged prostate (Acute) Unspecified rotator cuff tear or rupture of left shoulder, not specified as traumatic (Acute) Clavicle fracture (Acute) Multiple sclerosis (Acute) Social History Social History Substance History: No History of Abuse Second Hand Smoke Exposure: Yes Smoking Status: Current every day smoker Tobacco Type: Cigarettes How Often Do You Have a Drink Containing Alcohol: Never Immunization History Tetanus Immunization: <5 Years Hx Influenza Vaccine This Season: No Exam Const General: cooperative and well developed Nutritional Appearance: well nourished Orientation: alert, awake and oriented x3 HENMT Head: normocephalic and atraumatic Nose: no nasal discharge and no epistaxis Mouth: moist mucous membranes Eyes Sclera: normal sclerae Pupils: PERRL Neck Neck: no meningeal signs, trachea midline and no JVD Resp Effort & Inspection: no use of accessory muscles Auscultation: clear to auscultation bilaterally Cardio Rate: bradycardic Rhythm: regular rhythm Heart Sounds: no gallops, no murmurs and no rubs GI Inspection: non-distended Palpation: soft, no hepatosplenomegaly and tender in the LLQ and suprapubicly Auscultation: normal bowel sounds Rectal Exam: fecal impaction, heme negative stool and prostate abnormal ( enlarged, boggy) Back/Spine/Pelvis Back: no CVA tenderness Skin General: dry skin (warm) Neuro General: alert and awake Cranial Nerves: CN's II-XI intact bilaterally Speech: speech normal Motor: no movement abnormalities noted and strength abnormal (2/5 lower extremity bilateral, 2/5 hand abduction/adduction bilateral) Sensory Exam: no sensory deficits noted Extrem General: normal to inspection, no clubbing, no cyanosis and no edema Psych Mood: congruent mood Affect: normal affect Judgment: judgment good Course Consultations Consultation #1: The patient's case including history, pertinent physical examination findings, and laboratory studies were discussed with Dr. Barrett. It was agreed that the patient would be admitted to the hospitalist service. Initial Documented Vital Signs Temperature 98.2 F 03/14/18 19:16 Pulse Rate 69 03/14/18 19:16 Respiratory Rate 17 03/14/18 19:16 Blood Pressure 142/89 H 03/14/18 19:16 Pulse Oximetry 98 03/14/18 19:16 Last Documented Vital Signs Temperature 98.2 F 03/14/18 19:16 Pulse Rate 69 03/14/18 19:16 Respiratory Rate 17 03/14/18 19:16 Blood Pressure 142/89 H 03/14/18 19:16 Pulse Oximetry 97 03/14/18 21:13 Medical Decision Making MDM Narrative Medical decision making narrative: During the course of the patient's emergency department visit, the patient's history, examination, and differential diagnosis were reviewed with the patient. The patient was placed on a clinical research monitor with oximetry and frequent blood pressure monitoring. The patient had IV access obtained and blood work sent for analysis. A diagnostic evaluation was started regarding the patient's syncope. The patient's diagnostic evaluation is remarkable for a white count of 10.3, platelets 294, hemoglobin 15.9, neutrophils 70.1, PT 9.6, PTT 25, chemistry is remarkable for GFR 76, AST 10, initial set of cardiac enzymes within normal limits, magnesium is 2.4, urinalysis shows trace leukocyte esterase rare sediment rare bacteria. Chest x-ray revealed no acute cardiopulmonary disease. The patient's case was discussed with Dr. Barrett. She did agree to admit the patient for continued evaluation and treatment regarding suspected syncope. Medical Screen Exam Complete: Yes Emergency Medical Condition: Yes Differential Diagnosis Differential Diagnosis: Orthostasis, versus dysautonomia, versus multiple sclerosis exacerbation, versus cardiac dysrhythmia, versus acute coronary syndrome Medical Records Medical records reviewed: Yes I reviewed the patient's medical records. Lab Data Lab results reviewed: Yes I reviewed the patient's lab results. Result diagrams: 03/14/18 21:00 03/14/18 21:00 Lab Results 03/14/18 03/14/18 03/14/18 Range/Units 21:00 21:00 21:00 WBC 10.3 (4.0-11.0) th/mm3 RBC 5.46 (4.50-5.90) mil/mm3 Hgb 15.9 (13.0-17.0) gm/dL Hct 47.9 (39.0-51.0) % MCV 87.7 (80.0-100.0) fL MCH 29.1 (27.0-34.0) pg MCHC 33.2 (32.0-36.0) % RDW 15.0 (11.6-17.2) % Plt Count 294 D (150-450) th/mm3 MPV 8.3 (7.0-11.0) fL Neut % (Auto) 70.1 H (16.0-70.0) % Lymph % (Auto) 16.8 (9.0-44.0) % [place] % (Auto) 9.3 H (0.0-8.0) % Eos % (Auto) 2.6 (0.0-4.0) % Baso % (Auto) 1.2 (0.0-2.0) % Neut # (Auto) 7.2 (1.8-7.7) th/mm3 Lymph # (Auto) 1.7 (1.0-4.8) th/mm3 [place] # (Auto) 1.0 H (0.0-0.9) th/mm3 Eos # (Auto) 0.3 (0.0-0.4) th/mm3 Baso # (Auto) 0.1 (0.0-0.2) th/mm3 WBC Differential . Differential Comment Auto diff final PT (9.8-11.6) sec INR Ratio APTT (24.3-30.1) sec Sodium (136-145) meq/L Potassium (3.5-5.1) meq/L Chloride (98-107) meq/L Carbon Dioxide (21.0-32.0) meq/L Anion Gap (5-15) meq/L BUN (7-18) mg/dL Creatinine (0.60-1.30) mg/dL Estimated GFR (>89) mL/min Random Glucose (74-106) mg/dL Calcium (8.5-10.1) mg/dL Magnesium (1.5-2.5) mg/dL Total Bilirubin (0.2-1.0) mg/dL AST (15-37) U/L ALT (12-78) U/L Alkaline Phosphatase (45-117) U/L Total Creatine Kinase (39-308) U/L Troponin I (0.02-0.05) ng/mL B-Natriuretic Peptide 16 (0-100) pg/mL Total Protein (6.4-8.2) g/dL Albumin (3.4-5.0) g/dL Lipase 189 (73-393) U/L Urine Color (Yellw/Straw) Urine Clarity (Clear) Urine pH (5.0-8.5) Ur Specific [place] (1.002-1.035) Urine Protein (Neg-Trace) mg/dL Urine Glucose (UA) (Negative) mg/dL Urine Ketones (Negative) mg/dL Urine Occult Blood (Negative) Urine Nitrate (Negative) Urine Bilirubin (Negative) Urine Urobilinogen (Less than 2) mg/dL Ur Leukocyte Esterase (Negative) Urine RBC (0-3) /hpf Urine WBC (0-5) /hpf Amorphous Sediment (None) /hpf Urine Bacteria (None) /hpf Urine Mucus (Occasional) /lpf Micro UA Comment Ur Microscopic Review Urine Culture Comments 03/14/18 03/14/18 03/14/18 Range/Units 21:00 21:00 21:00 WBC (4.0-11.0) th/mm3 RBC (4.50-5.90) mil/mm3 Hgb (13.0-17.0) gm/dL Hct (39.0-51.0) % MCV (80.0-100.0) fL MCH (27.0-34.0) pg MCHC (32.0-36.0) % RDW (11.6-17.2) % Plt Count (150-450) th/mm3 MPV (7.0-11.0) fL Neut % (Auto) (16.0-70.0) % Lymph % (Auto) (9.0-44.0) % [place] % (Auto) (0.0-8.0) % Eos % (Auto) (0.0-4.0) % Baso % (Auto) (0.0-2.0) % Neut # (Auto) (1.8-7.7) th/mm3 Lymph # (Auto) (1.0-4.8) th/mm3 [place] # (Auto) (0.0-0.9) th/mm3 Eos # (Auto) (0.0-0.4) th/mm3 Baso # (Auto) (0.0-0.2) th/mm3 WBC Differential Differential Comment PT 9.6 L (9.8-11.6) sec INR 0.9 Ratio APTT 25.0 (24.3-30.1) sec Sodium 139 (136-145) meq/L Potassium 3.5 (3.5-5.1) meq/L Chloride 103 (98-107) meq/L Carbon Dioxide 30.3 (21.0-32.0) meq/L Anion Gap 6 (5-15) meq/L BUN 11 (7-18) mg/dL Creatinine 1.03 (0.60-1.30) mg/dL Estimated GFR 76 L (>89) mL/min Random Glucose 93 (74-106) mg/dL Calcium 9.3 (8.5-10.1) mg/dL Magnesium (1.5-2.5) mg/dL Total Bilirubin 0.4 (0.2-1.0) mg/dL AST 10 L (15-37) U/L ALT 17 (12-78) U/L Alkaline Phosphatase 82 (45-117) U/L Total Creatine Kinase 41 (39-308) U/L Troponin I Less than 0.02 L (0.02-0.05) ng/mL B-Natriuretic Peptide (0-100) pg/mL Total Protein 8.1 (6.4-8.2) g/dL Albumin 3.6 (3.4-5.0) g/dL Lipase (73-393) U/L Urine Color (Yellw/Straw) Urine Clarity (Clear) Urine pH (5.0-8.5) Ur Specific [place] (1.002-1.035) Urine Protein (Neg-Trace) mg/dL Urine Glucose (UA) (Negative) mg/dL Urine Ketones (Negative) mg/dL Urine Occult Blood (Negative) Urine Nitrate (Negative) Urine Bilirubin (Negative) Urine Urobilinogen (Less than 2) mg/dL Ur Leukocyte Esterase (Negative) Urine RBC (0-3) /hpf Urine WBC (0-5) /hpf Amorphous Sediment (None) /hpf Urine Bacteria (None) /hpf Urine Mucus (Occasional) /lpf Micro UA Comment Ur Microscopic Review Urine Culture Comments 03/14/18 03/14/18 Range/Units 21:00 21:00 WBC (4.0-11.0) th/mm3 RBC (4.50-5.90) mil/mm3 Hgb (13.0-17.0) gm/dL Hct (39.0-51.0) % MCV (80.0-100.0) fL MCH (27.0-34.0) pg MCHC (32.0-36.0) % RDW (11.6-17.2) % Plt Count (150-450) th/mm3 MPV (7.0-11.0) fL Neut % (Auto) (16.0-70.0) % Lymph % (Auto) (9.0-44.0) % [place] % (Auto) (0.0-8.0) % Eos % (Auto) (0.0-4.0) % Baso % (Auto) (0.0-2.0) % Neut # (Auto) (1.8-7.7) th/mm3 Lymph # (Auto) (1.0-4.8) th/mm3 [place] # (Auto) (0.0-0.9) th/mm3 Eos # (Auto) (0.0-0.4) th/mm3 Baso # (Auto) (0.0-0.2) th/mm3 WBC Differential Differential Comment PT (9.8-11.6) sec INR Ratio APTT (24.3-30.1) sec Sodium (136-145) meq/L Potassium (3.5-5.1) meq/L Chloride (98-107) meq/L Carbon Dioxide (21.0-32.0) meq/L Anion Gap (5-15) meq/L BUN (7-18) mg/dL Creatinine (0.60-1.30) mg/dL Estimated GFR (>89) mL/min Random Glucose (74-106) mg/dL Calcium (8.5-10.1) mg/dL Magnesium 2.4 (1.5-2.5) mg/dL Total Bilirubin (0.2-1.0) mg/dL AST (15-37) U/L ALT (12-78) U/L Alkaline Phosphatase (45-117) U/L Total Creatine Kinase (39-308) U/L Troponin I (0.02-0.05) ng/mL B-Natriuretic Peptide (0-100) pg/mL Total Protein (6.4-8.2) g/dL Albumin (3.4-5.0) g/dL Lipase (73-393) U/L Urine Color Straw (Yellw/Straw) Urine Clarity Clear (Clear) Urine pH 6.0 (5.0-8.5) Ur Specific [place] 1.003 (1.002-1.035) Urine Protein Negative (Neg-Trace) mg/dL Urine Glucose (UA) Negative (Negative) mg/dL Urine Ketones Negative (Negative) mg/dL Urine Occult Blood Small H (Negative) Urine Nitrate Negative (Negative) Urine Bilirubin Negative (Negative) Urine Urobilinogen Less than 2 (Less than 2) mg/dL Ur Leukocyte Esterase Trace H (Negative) Urine RBC Less than 1 (0-3) /hpf Urine WBC 1 (0-5) /hpf Amorphous Sediment Rare H (None) /hpf Urine Bacteria Rare H (None) /hpf Urine Mucus Few H (Occasional) /lpf Micro UA Comment Cath-culture ind Ur Microscopic Review Not Reportable Urine Culture Comments Cath-cult indicated Imaging Data Radiologist's impression: Chest X-Ray 03/14/18 20:13 CONCLUSION: No acute cardiopulmonary disease. ECG Data Attestation: I personally reviewed and interpreted this ECG as follows: Interpretation: The patient had a EKG done on arrival that shows a sinus bradycardia heart rate of 52, QRS duration is 97 ms, QTC [address] segment elevation, T waves are inverted in V1. Discharge Plan Discharge Disposition Patient Disposition: 30 Still Patient Discharge Details Diagnosis: Syncope Physicians Team ED Provider: Shayy Tao Primary Care Provider: Primary Care Blanca Perrin Attending Provider: Shy Barrett Status ED Status: Left Department Discharge Information Discharge Date/Time: 03/15/18 00:33
[2018-03-14 21:53] LABS: Baso # (Auto) 0.1 th/mm3 (0.0-0.2); Baso % (Auto) 1.2 % (0.0-2.0); Eos # (Auto) 0.3 th/mm3 (0.0-0.4); Eos % (Auto) 2.6 % (0.0-4.0); Hematocrit 47.9 % (39.0-51.0); Hemoglobin 15.9 gm/dL (13.0-17.0); Lymph # (Auto) 1.7 th/mm3 (1.0-4.8); Lymph % (Auto) 16.8 % (9.0-44.0); Mean Corpuscular HGB Conc 33.2 % (32.0-36.0); Mean Corpuscular Hemoglobin 29.1 pg (27.0-34.0); Mean Corpuscular Volume 87.7 fL (80.0-100.0); Mean Platelet Volume 8.3 fL (7.0-11.0); Mono % (Auto) 9.3 % (0.0-8.0); Neut # (Auto) 7.2 th/mm3 (1.8-7.7); Neut % (Auto) 70.1 % (16.0-70.0); Platelet Count 294 th/mm3 (150-450); Red Blood Count 5.46 mil/mm3 (4.50-5.90); White Blood Count 10.3 th/mm3 (4.0-11.0)
[2018-03-14 22:02] LABS: Amorphous Sediment,Urine Rare /hpf; Bacteria,Urine Rare /hpf; Bilirubin,Urine Negative (Negative); Clarity,Urine Clear (Clear); Color,Urine Straw (Yellw/Straw); Glucose,Urine (UA) Negative (Negative); Leukocyte Esterase,Urine Trace (Negative); Mucus,Urine Few /lpf (Occasional); Nitrite,Urine Negative (Negative); Specific Gravity,Urine 1.003 (1.002-1.035)
[2018-03-14 22:10] LABS: Albumin 3.6 g/dL (3.4-5.0); Anion Gap 6 meq/L (5-15); Aspartate Aminotransferase 10 U/L (15-37); Blood Urea Nitrogen 11 mg/dL (7-18); Calcium 9.3 mg/dL (8.5-10.1); Carbon Dioxide 30.3 meq/L (21.0-32.0); Chloride 103 meq/L (98-107); Glomerular Filtration Rate 76 mL/min (>89); Glucose,Random 93 mg/dL (74-106); INR 0.9 Ratio; Potassium 3.5 meq/L (3.5-5.1); Prothrombin Time 9.6 sec (9.8-11.6); Sodium 139 meq/L (136-145)
[2018-03-14 22:11] LABS: Alanine Aminotransferase 17 U/L (12-78)
[2018-03-14 22:15] LABS: Alkaline Phosphatase 82 U/L (45-117); Total Protein 8.1 g/dL (6.4-8.2)
[2018-03-14] MEDS ORDERED: Bisacodyl 10 MG Supp RECTAL PRN (23:44)
[2018-03-14] MEDS ORDERED: Acetaminophen 325 MG Tablet PO PRN (23:44)
[2018-03-14] MEDS ORDERED: Sod Chloride 0.9% Inj 1,000 ML IV.CONT SCH (23:45)
--- NOTE | 2018-03-14 23:48 | P.HPIM ---
History of Present Illness Primary Care Physician: No [facility] - History History Provided By: Patient, Family Member - Medical History Medical History: Medical History (Last Updated 03/14/18 @ 19:42 by Veronica Price) Enlarged prostate with urinary retention (Acute) Enlarged prostate (Acute) Unspecified rotator cuff tear or rupture of left shoulder, not specified as traumatic (Acute) Clavicle fracture (Acute) Multiple sclerosis (Acute) - Tobacco History Second Hand Smoke Exposure: Yes Tobacco Use In Past 30 Days: Yes Smoking Status: Current every day smoker Tobacco Type: Cigarettes - Alcohol History How Often Do You Have a Drink Containing Alcohol: Never - Substance Use History Substance History: No History of Abuse - Immunization History Tetanus Immunization: <5 Years Hx Influenza Vaccine This Season: No Medications and Allergies Active Medications: Active Medications Sodium Chloride (Ns Flush) 2 ml IV.FLUSH UNSCH PRN PRN Reason: FLUSH AFTER USING IV ACCESS Allergies Allergy/AdvReac Type Severity Reaction Status Date / Time doxycycline AdvReac Intermediate Nausea/Vomi Verified 03/14/18 19:16 ting Home Medications Medication Instructions Recorded Confirmed Type ocrelizumab [Ocrevus] 600 mg IV [id number] 03/14/18 03/14/18 History Exam Vital signs: Vital Signs 03/14/18 19:16 03/14/18 21:13 Temperature 98.2 F Pulse Rate 69 Respiratory Rate 17 Blood Pressure 142/89 H Pulse Oximetry 98 97 Intake & Output 03/14/18 03/14/18 03/15/18 06:59 18:59 06:59 Weight 70.307 kg Results - Labs CBC & Chem 7: 03/14/18 21:00 03/14/18 21:00 Labs: Short CBC 03/14/18 Range/Units 21:00 WBC 10.3 (4.0-11.0) th/mm3 Hgb 15.9 (13.0-17.0) gm/dL Hct 47.9 (39.0-51.0) % Plt Count 294 D (150-450) th/mm3 BMP 03/14/18 21:00 Sodium 139 Potassium 3.5 Chloride 103 Carbon Dioxide 30.3 BUN 11 Creatinine 1.03 Calcium 9.3 Cardiac Enzymes 03/14/18 03/14/18 Range/Units 21:00 21:00 Total Creatine Kinase 41 (39-308) U/L Troponin I Less than 0.02 L (0.02-0.05) ng/mL Liver Function 03/14/18 Range/Units 21:00 Total Bilirubin 0.4 (0.2-1.0) mg/dL AST 10 L (15-37) U/L ALT 17 (12-78) U/L Alkaline Phosphatase 82 (45-117) U/L Albumin 3.6 (3.4-5.0) g/dL Urine 03/14/18 Range/Units 21:00 Urine Color Straw (Yellw/Straw) Urine Clarity Clear (Clear) Urine pH 6.0 (5.0-8.5) Ur Specific [place] 1.003 (1.002-1.035) Urine Protein Negative (Neg-Trace) mg/dL Urine Glucose (UA) Negative (Negative) mg/dL - Imaging Impressions Chest X-Ray 03/14/18 20:13 CONCLUSION: No acute cardiopulmonary disease. Caprini VTE Risk Assessment Caprini Risk Assessment Model: Point Value = 1 Point Value = 2 Point Value = 3 Point Value = 5 Age 41-60 Minor surgery BMI > 25 kg/m2 Swollen legs Varicose veins or History of unexplained or recurrent spontaneous Oral contraceptives or hormone replacement Sepsis (< 1 month) Serious lung disease, including pneumonia (< 1 month) Abnormal pulmonary function Acute myocardial infarction Congestive heart failure (< 1 month) History of inflammatory bowel disease Medical patient at bed rest Age 61-74 Arthroscopic surgery Major open surgery (> 45 min) Laparoscopic surgery (> 45 min) Malignancy Confined to bed (> 72 hours) Immobilizing plaster cast Central venous access Age >= 75 History of VTE Family history of VTE Factor V Leiden Prothrombin 42130B Lupus anticoagulant Anticardiolipin antibodies Elevated serum homocysteine Heparin-induced thrombocytopenia Other congenital or acquired thrombophilia Stroke (< 1 month) Elective arthroplasty Hip, pelvis, or leg fracture Acute spinal cord injury (< 1 month) Prophylaxis Regimen: Total Risk Factor Score Risk Level Prophylaxis Regimen 0-1 Low Early ambulation 2 Moderate Order ONE of the following: *Sequential Compression Device (SCD) *Heparin 5000 units SQ BID 3-4 Higher Order ONE of the following medications: *Heparin 5000 units SQ TID *Enoxaparin/Lovenox 40 mg SQ daily (WT < 150 kg, CrCl > 30 mL/min) *Enoxaparin/Lovenox 30 mg SQ daily (WT < 150 kg, CrCl > 10-29 mL/min) *Enoxaparin/Lovenox 30 mg SQ BID (WT < 150 kg, CrCl > 30 mL/min) AND/OR *Sequential Compression Device (SCD) 5 or more Highest Order ONE of the following medications: *Heparin 5000 units SQ TID (Preferred with Epidurals) *Enoxaparin/Lovenox 40 mg SQ daily (WT < 150 kg, CrCl > 30 mL/min) *Enoxaparin/Lovenox 30 mg SQ daily (WT < 150 kg, CrCl > 10-29 mL/min) *Enoxaparin/Lovenox 30 mg SQ BID (WT < 150 kg, CrCl > 30 mL/min) AND *Sequential Compression Device (SCD)
[2018-03-15] MEDS ORDERED: Senna/Docusate Sodium 8.6/50 MG Tablet PO SCH (09:00)
--- NOTE | 2018-03-15 17:00 | ECG ---
Date Performed: 03/14/2018 Time Performed: 21:35:53 PTAGE: 52 years EKG: SINUS BRADYCARDIA BORDERLINE ECG PREVIOUS TRACING : 12/14/2016 18.11 DOCTOR: Gideon Tao Interpretating Date/Time 03/15/2018 16:59:35
== END 2018-03-15 00:23 | disposition home or self-care (01) ==
LOC: NEPE 18:35 → NEDA 18:35
PROVIDERS: ADMIT Hospitalist; ATTEND Hospitalist